=== PATIENT | female | born 1950 | race Caucasian/White ===

== ENCOUNTER → 2017-02-01 | Day surgery (SDC) | payer OTHER ==
[~2017-02-01] VITALS: Ht 172.7 cm; Wt 95.0 kg
[~2017-02-01] MED LIST: ASPI81TA28 PO; ATEN50TA8 PO; BTP80 PO; DIAZ-165 PO; HYDR-3714 PO; HYDR25TA4 PO; LEVO175T3 PO; LEVO200T6 PO; LOSA50TA6 PO; MIDAZOLAM HCL 1 MG/ML 2ML VIAL ONE; NRV5 PO; PARO1TAB29 PO; PRAV20TA PO; PROPOFOL IV EMULSION 10 MG/ML 20 ML VIAL IV ONE; TRAZ50TA35 PO; VNTHFA/IN INH; WARF5TAB7 PO
[2017-02-01 06:53] VITALS: BP 181/117; PULSE 98; TEMP 36.2; O2SAT 95; Ht 172.7 cm; Wt 95.0 kg
[2017-02-01 07:40] VITALS: BP 143/91; PULSE 88; O2SAT 98
[2017-02-01 07:43] VITALS: BP 137/72; PULSE 49; O2SAT 97
[2017-02-01 07:45] VITALS: BP 125/70; PULSE 49; O2SAT 97
[2017-02-01 07:50] VITALS: BP 126/73; PULSE 49; O2SAT 97
--- NOTE | 2017-02-01 07:51 | History and Physical ---
History & Physical Date Feb 01, 2017. Chief Complaint Atrial fib History of Present Illness The patient is a 66 year old female with complaints of atrial fib. Here for cardioversion. Past Medical/Surgical History Persistent atrial fib Treated hypothyroidism hypertension Allergies Coded Allergies: NSAIDs (Verified Allergy, Unknown, STOMACH UPSET, 01/12/17) Home Medications Scheduled Aspirin (Aspirin Ec), 81 MG PO QAM Atenolol (Tenormin), 50 MG PO QAM Hydrochlorothiazide (Hctz), 0.5 TAB PO DAILY Levothyroxine Sodium (Levothyroxine Sodium), 1 TAB PO DAILY Losartan Potassium (Cozaar), 1 TAB PO DAILY Paroxetine (Paxil), 40 MG PO QAM Pravastatin (Pravachol ), 20 MG PO HS Trazodone Hcl (Trazodone), 50 MG PO HS Warfarin Sod (Jantoven), 5 MG PO HS Scheduled PRN Hydrocodon/Acetaminophen 7.5MG/300MG (Vicodin Es (7.5MG/300MG)), 1 TAB PO Q6H PRN for Pain Physical Examination Skin: warm/dry Eyes: normal inspection ENT: normal ENT inspection Head: normocephalic Neck: supple, no adenopathy, trachea midline Respiratory/Chest: lungs clear Cardiovascular: regular rate, rhythm, no edema, no murmur Abdomen / GI: normal bowel sounds, non tender Back: normal inspection Extremities: normal inspection, normal range of motion Neurologic/Psych: no motor/sensory deficits, normal reflexes, oriented x 3 ASA Classification: ASA Class I Plan of Treatment Cardioversion
--- NOTE | 2017-02-01 07:53 | Cardioversion ---
Electricial Cardioversion Rpt Date of Service: January 31, 2017 Electrical Cardioversion Rprt Pt. received 200 joules to convert to NSR. Sedation given by anesthesia. No complications.
--- NOTE | 2017-02-01 08:35 | Anesthesiology Progress Note ---
Anesthesia Post Op Note Date & Time Feb 01, 2017 at 08:35 Vital Signs Pain Intensity: 0 Vital Signs Past 12 Hours Date Time Temp Pulse Resp B/P (MAP) Pulse Ox O2 Delivery O2 Flow Rate FiO2 02/01/17 08:30 55 19 133/59 (83) 94 Room Air 02/01/17 08:15 48 16 128/75 (92) 94 Room Air 02/01/17 08:10 50 18 128/62 (84) 95 Room Air 02/01/17 08:00 50 18 122/62 (82) 95 Room Air 02/01/17 07:50 49 18 126/73 97 Nasal Cannula 4 02/01/17 07:45 49 18 125/70 97 Nasal Cannula 4 02/01/17 07:43 49 18 137/72 97 Nasal Cannula 4 02/01/17 07:40 88 18 143/91 98 Nasal Cannula 4 02/01/17 06:53 36.2 98 16 181/117 95 Room Air Notes Mental Status: alert / awake / arousable, participated in evaluation Pt Amnestic to Procedure: Yes Nausea / Vomiting: adequately controlled Pain: adequately controlled Airway Patency, RR, SpO2: stable & adequate BP & HR: stable & adequate Hydration State: stable & adequate Anesthetic Complications: no major complications apparent
--- NOTE | 2017-02-01 09:12 | Discharge Instructions ---
Discharge Instructions Procedure Procedure Date: Feb 01, 2017. Reason for Visit: *W/Anethesia* A-Fib *Dr Dukes Doing*. Discharge Discharge Date: Feb 01, 2017. Discharge Diagnosis: Atrial fib Last Recorded Wt (Kilograms): 95 Anesthesia Post Anesthesia Instructions: If you have had General Anesthesia or IV Sedation: * Do not drive today. * Resume driving when surgeon permits. * Do not make important decisions or sign legal documents today. * Call surgeon for: 1. Temperature elevations greater than 101 degrees F. 2. Uncontrollable pain. 3. Excessive bleeding. 4. Persistent nausea and vomiting. 5. Medication intolerance (nausea, vomiting or rash). * For nausea and vomiting use only clear liquids such as: tea, soda, bouillon until nausea subsides, then gradually increase diet as tolerated. * If you have any concerns or questions, call your surgeon's office. If physician is unavailable and it is an emergency, call 911 or go to the nearest emergency room. Instructions Activity Recommendations: no limitations Recommended Home Diet: resume previous diet Allergies: Coded Allergies: NSAIDs (Verified Allergy, Unknown, STOMACH UPSET, 01/12/17) Provider Instructions ACTIVITY RECOMMENDATIONS: * May resume driving tomorrow. SPECIAL CARE: * May apply burn ointment for skin irritation. * Please contact physician for any lightheadedness, dizziness or palpitations. Follow Up Follow-up with: Follow-up with Dr. Alves as previously scheduled [facility] Recommendations: Call your doctor if: * Temperature above 101 degrees * Pain not relieved by pain medicine ordered * There is increased drainage or redness from any incision * You have any unanswered questions or concerns. Your Doctors Instructions noted above were prepared by provider Lorenzo Dukes. Patient Signature Section: Patient Instructions Signature Page Arabella Tejeda Patient (or Guardian) Signature/Date: I have read and understand the instructions given to me by my caregivers. Caregiver/RN/Doctor Signature/Date: The above-named patient and/or guardian has received patient instructions on this date. + Original Patient Signature Page (only) stays with chart. Please make copy for patient.
[2017-02-01 09:15] VITALS: BP 130/80; PULSE 55; O2SAT 95
== END | disposition home or self-care (01) ==
LOC: C.CATH 06:42
PROVIDERS: ATTEND Internal Medicine Interventional Cardiology
DX: I48.91 Unspecified atrial fibrillation (principal); E03.9 Hypothyroidism, unspecified; I10 Essential (primary) hypertension; Z79.82 Long term (current) use of aspirin; Z79.01 Long term (current) use of anticoagulants

== ENCOUNTER → 2017-02-03 | Day surgery (SDC) | payer OTHER ==
[2017-01-12 14:40] VITALS: Ht 172.7 cm; Wt 102.3 kg
[~2017-02-03] VITALS: Ht 172.7 cm; Wt 102.3 kg
[~2017-02-03] MED LIST changes: +500ML BSS 0.3ML EPI 1:1000PF IRRIG ONE; +ACETAMINOPHEN 325 MG TAB PO PRN; +AMVISC PLUS 0.8ML SYRINGE INT OCU ONE; +ATROPINE SULFATE 0.1 MG/ML 5ML SYR IV PRN; +BSS FLUSH ONE; -DIAZ-165 PO; +ENDOCOAT 0.85ML SYRINGE INT OCU ONE; +EpHEDrine SULFATE INJ 50 MG/ML AMP IV PRN; +EpINEphrine INJ 1MG/ML AMP 1 MG/ML AMP ONE; +FENTANYL CITRATE INJ 50 MCG/1 ML 2 ML VIAL ONE; +LACTATED RINGER'S 1000ML 500 ML IV SCH; -LEVO200T6 PO; +LIDOCAINE 4% OP SOLN DROP CHARGE ONE; +LIDOCAINE 4% OP SOLN DROP CHARGE OPL SCH; +LIDOCAINE HCL 1% MPF 2 ML VIAL ONE; +MIX: 4ML BSS 1ML EPI 1:1000 PF TOP ONE; +MOXIFLOXACIN OPH SOLN PER DROP CHARGE ONE; +POVIDONE-IODINE OP SOLN 30 ML BTL ONE; +PROPARACAINE 0.5% OP SOLN PER DROP CHARGE OPL SCH; -PROPOFOL IV EMULSION 10 MG/ML 20 ML VIAL IV ONE; +TOBRAMYCIN/DEXAMETHASONE OPH OINT PER APPLN CHARGE ONE; -VNTHFA/IN INH
--- NOTE | 2017-02-03 06:45 | History & Physical Bridge - [place] ---
H&P Re-Evaluation Bridge Note: I have examined the patient, reviewed the History & Physical and in the interval since the performance of the History & Physical I have noted the following changes of clinical significance: No changes noted. Left eye cataract surgery.
[2017-02-03] MEDS: PHENYLEPHRINE HCL 2.5% OP SOLN PER DROP CHARGE OPL SCH ×3 (07:26→07:35)
[2017-02-03] MEDS: TROPICAMIDE 1% OP SOLN PER DROP CHARGE OPL SCH ×3 (07:27→07:36)
[2017-02-03] MEDS: CYCLOPENTOLATE HCL 1% OP SOLN PER DROP CHARGE OPL SCH ×3 (07:28→07:37)
[2017-02-03] MEDS: MOXIFLOXACIN OPH SOLN PER DROP CHARGE OPL SCH ×3 (07:29→07:38)
--- NOTE | 2017-02-03 08:45 | [facility] Post Operative Brief Note ---
Immediate Operative Summary Operative Date Feb 03, 2017. Pre-Operative Diagnosis Left Eye Cartaract Post-Operative Diagnosis same Procedure(s) Performed Left Cataract Phacoemulsification With Intraocular Lens Implant Surgeon Dr. Stephanie Woods Crew Attendant Surgeon(s) 0 Estimated Blood Loss 0 Findings left cataract Specimens none Complication(s) None Disposition
--- NOTE | 2017-02-03 08:46 | [facility] Operative Report ---
Operative Report Date of Service Feb 03, 2017. Operative Report DATE OF OPERATION: 02/03/17 PREOPERATIVE DIAGNOSIS: Senile nuclear cataract, left eye POSTOPERATIVE DIAGNOSIS: Senile nuclear cataract, left eye PROCEDURE PERFORMED: Phacoemulsification with intraocular lens implantation, left eye SURGEON: Dr. Leland Woods ANESTHESIA: Topical with 1% intracameral lidocaine and monitored anesthesia care COMPLICATIONS: None DESCRIPTION OF PROCEDURE: After positively identifying the patient both verbally and by wristband in the preoperative area, the left eye was marked as the operative eye. The patient was then brought back to the operating room by the anesthesia and nursing staff where they were given a drop of Lidocaine and betadine into the operative eye. They were then sterilely prepped and draped in the standard fashion typical for ophthalmic surgery. Steri-strips were placed along the upper eyelids to keep the lashes back, and a lid speculum was placed into the operative eye. At this point, a documented time out was performed with members of the ophthalmology, nursing, and anesthesia staffs all agreeing upon the correct patient, correct location for surgery, correct procedure, and correct type and power of intraocular lens to be implanted. The microscope was then swung into position. First, a paracentesis wound was made using a sideport blade. Then, in sequence, 1% preservative-free lidocaine followed by Endocoat viscoelastic was injected into the anterior chamber. Next , the main incision was made with a keratome blade in triplanar fashion. A sharp cystotome was introduced into the eye and used to create a tear in the anterior capsule, which was directed into a continuous curvilinear capsulorrhexis using Utrata forceps. Hydrodissection was then performed with BSS on a flat-tip cannula. Next, the phacoemulsification handpiece was introduced into the eye and used to remove the nucleus in a [id number] fashion. This was done without complication and then the irrigation-aspiration handpiece was introduced into the eye and used to remove all remaining cortical and epinuclear material. Amvisc was then injected into the anterior chamber as well as into the capsular bag and using the lens injector system, an MX60 19.5 D lens, serial number [id number], and expiration date 07/2019 was injected into the capsular bag and rotated into the correct position. Next, the irrigation- aspiration handpiece was used to remove all remaining Amvisc. BSS was used to hydrate the main wound, and then BSS was injected into the paracentesis site to reach physiologic pressure and then the main wound was checked and found to be watertight. The patient was given drops of Vigamox and Tobradex ointment into the operative eye, and then the surrounding area was cleaned and dried. A clear plastic shield was placed over the eye and the patient was then sat up and taken from the operating room by the anesthesia staff having tolerated the procedure well and suffering no complications. DISPOSITION: The patient was returned to the recovery room in stable condition. I attest to the content of the Intraoperative Record and any orders documented therein. Any exceptions are noted below.
--- NOTE | 2017-02-03 08:47 | Discharge Instructions-SurgCtr ---
Discharge Instructions Date of Service Feb 03, 2017. Visit Reason for Visit: Cataract Left Eye Discharge Discharge Diagnosis / Problem: left cataract Discharge Goals Goal(s): Decrease discomfort, Improve function Activity Recommendations Activity Limitations: as noted below Anesthesia . Post Anesthesia Instructions: If you have had General Anesthesia or IV Sedation: * Do not drive today. * Resume driving when surgeon permits. * Do not make important decisions or sign legal documents today. * Call surgeon for: 1. Temperature elevations greater than 101 degrees F. 2. Uncontrollable pain. 3. Excessive bleeding. 4. Persistent nausea and vomiting. 5. Medication intolerance (nausea, vomiting or rash). * For nausea and vomiting use only clear liquids such as: tea, soda, bouillon until nausea subsides, then gradually increase diet as tolerated. * If you have any concerns or questions, call your surgeon's office. If physician is unavailable and it is an emergency, call 911 or go to the nearest emergency room. . Instructions / Follow-Up Instructions / Follow-Up ACTIVITY RECOMMENDATIONS: * Light activities. * You may walk outside, read, watch television. * You may notice redness on the white part of the eye and some blurry vision - this is normal. MEDICATIONS: Resume previous medications unless instructed otherwise by your surgeon. Start all eye drops at 11 am today: * Eye drops (today): Prednisone - one drop in operative eye every 2 hours while awake Ofloxacin - one drop in operative eye every 2 hours while awake Bromfenac - one drop in operative eye daily SPECIAL CARE INSTRUCTIONS: * Tape plastic shield over eye to sleep at night. Call your doctor at with any concerns or problems. FOLLOW UP VISIT: Follow-up with Dr Woods at [place] office as scheduled. Diet Recommendations Home Diet: no limitations Procedures Procedures Performed: Left Cataract Phacoemulsification With Intraocular Lens Implant Pending Studies Studies pending at discharge: no Medical Emergencies . Who to Call and When: Medical Emergencies: If at any time you feel your situation is an emergency, please call 911 immediately. . Non-Emergent Contact Non-Emergency issues call your: Surgeon . . "Provider Documentation" section prepared by Leland Woods. .
[2017-02-03 08:49] VITALS: TEMP 36.5
--- NOTE | 2017-02-03 09:09 | Anesthesia Progress Nt - [facility] ---
Anesthesia Post Op Note Date & Time Feb 03, 2017 at 09:09 Vital Signs Pain Intensity: 0 Vital Signs Past 12 Hours Date Time Temp Pulse Resp B/P (MAP) Pulse Ox O2 Delivery O2 Flow Rate FiO2 02/03/17 08:49 36.5 47 16 167/49 (88) 93 Room Air 02/03/17 07:07 36.6 45 20 162/101 (121) 93 Room Air Notes Mental Status: alert / awake / arousable, participated in evaluation Pt Amnestic to Procedure: Yes Nausea / Vomiting: adequately controlled Pain: adequately controlled Airway Patency, RR, SpO2: stable & adequate BP & HR: stable & adequate Hydration State: stable & adequate Anesthetic Complications: no major complications apparent
[2017-02-03 09:23] VITALS: BP 150/79; PULSE 47; O2SAT 93
== END | disposition home or self-care (01) ==
LOC: X.SURG 06:42
PROVIDERS: ATTEND Ophthalmology
DX: H25.12 Age-related nuclear cataract, left eye (principal); I10 Essential (primary) hypertension; Z68.34 Body mass index [BMI] 34.0-34.9, adult; Z98.41 Cataract extraction status, right eye; F17.200 Nicotine dependence, unspecified, uncomplicated; M19.90 Unspecified osteoarthritis, unspecified site; Z85.828 Personal history of other malignant neoplasm of skin; I48.91 Unspecified atrial fibrillation; Z79.01 Long term (current) use of anticoagulants

== ENCOUNTER 2017-03-15 08:55 | Inpatient (IN) | payer OTHER ==
[~2017-03-15] VITALS: Ht 172.7 cm; Wt 98.6 kg
[2017-03-15] VITALS (8 sets, daily range): BP systolic 126–182; BP diastolic 86–119; PULSE 61–105; TEMP 36.6–36.9; O2SAT 93–95; Ht 172.7 cm; Wt 98.6 kg
[~2017-03-15 08:55] MED LIST changes: -500ML BSS 0.3ML EPI 1:1000PF IRRIG ONE; -ACETAMINOPHEN 325 MG TAB PO PRN; -AMVISC PLUS 0.8ML SYRINGE INT OCU ONE; -ATROPINE SULFATE 0.1 MG/ML 5ML SYR IV PRN; -BSS FLUSH ONE; -BTP80 PO; -ENDOCOAT 0.85ML SYRINGE INT OCU ONE; -EpHEDrine SULFATE INJ 50 MG/ML AMP IV PRN; -EpINEphrine INJ 1MG/ML AMP 1 MG/ML AMP ONE; -FENTANYL CITRATE INJ 50 MCG/1 ML 2 ML VIAL ONE; -LACTATED RINGER'S 1000ML 500 ML IV SCH; -LIDOCAINE 4% OP SOLN DROP CHARGE ONE; -LIDOCAINE 4% OP SOLN DROP CHARGE OPL SCH; -LIDOCAINE HCL 1% MPF 2 ML VIAL ONE; -MIDAZOLAM HCL 1 MG/ML 2ML VIAL ONE; -MIX: 4ML BSS 1ML EPI 1:1000 PF TOP ONE; -MOXIFLOXACIN OPH SOLN PER DROP CHARGE ONE; -NRV5 PO; -POVIDONE-IODINE OP SOLN 30 ML BTL ONE; -PROPARACAINE 0.5% OP SOLN PER DROP CHARGE OPL SCH; -TOBRAMYCIN/DEXAMETHASONE OPH OINT PER APPLN CHARGE ONE
--- NOTE | 2017-03-15 10:11 | History and Physical ---
History & Physical Date & Time of Service: Mar 15, 2017 at 10:04 Chief Complaint: A-FIB Primary Care Physician: Matthew Barahona D.O. History of Present Illness Source: patient, clinic records, hospital records Patient presents for inpatient sotalol loading. Vaguely aware of her heart rate. Denies chest pain or shortness of breath. No lightheadedness, dizziness , syncope or near-syncope. Social History Smoking Status: Current Every Day Smoker Drug Use: none Marital Status: Housing status: lives with family Occupational Status: employed Immunizations History of Influenza Vaccine: Yes Influenza Vaccine Date: Jul 22, 2005 History of Tetanus Vaccine?: Yes Tetanus Immunization Date: Jul 22, 2004 History of Pneumococcal: Yes Pneumococcal Date: Jul 22, 2004 History of Hepatitis B Vaccine: No Multi-Drug Resistant Organisms History of MDRO: No Allergies Coded Allergies: NSAIDs (Verified Allergy, Unknown, STOMACH UPSET, 01/12/17) Home Medications Scheduled Aspirin (Aspirin Ec), 81 MG PO QAM Atenolol (Tenormin), 50 MG PO QAM Hydrochlorothiazide (Hctz), 0.5 TAB PO DAILY Levothyroxine Sodium (Levothyroxine Sodium), 1 TAB PO DAILY Losartan Potassium (Cozaar), 1 TAB PO DAILY Paroxetine (Paxil), 40 MG PO QAM Pravastatin (Pravachol ), 20 MG PO HS Trazodone Hcl (Trazodone), 50 MG PO HS Warfarin Sod (Jantoven), 5 MG PO HS Scheduled PRN Hydrocodon/Acetaminophen 7.5MG/300MG (Vicodin Es (7.5MG/300MG)), 1 TAB PO Q6H PRN for Pain Diagnostics Laboratory Results Results Past 24 Hours Test 03/15/17 10:01 Range/Units Impression Assessment and Plan ASSESSMENT: 1. Paroxysmal atrial fibrillation with RVR s/p DCCV 01/29/2016, 05/2016, and most recently 02/01/17. -CHADS2 VASc score = 2. -currently AF with borderline rate control 2. Hypertension controlled 3. Hypertriglyceridemia currently tolerating pravastatin; fenofibrate on hold 4. Former tobacco abuse. 5. Generalized anxiety disorder. 6. Hypothyroidism Plan/recommendations: Patient will be admitted to telemetry floor for sotalol loading. Baseline ECG ordered. She will receive 80 mg 1 now. Then 80 mg twice daily. ECG will be performed in the a.m. to assess QT interval. She'll remain on continuous telemetry monitoring during hospitalization. Atenolol will be placed on hold. Repeat PT/INR and basic metabolic panel pending. Consider repeat external direct-current cardioversion during hospitalization. Level of Care Telemetry Advanced Directives Existing Advance Directive: No Existing Living Will: No Existing Power of Building Contractor: No Existing Health Care Proxy: No Resuscitation Status FULL RESUSCITATION VTE Prophylaxis VTE Risk Assessment Done? Y/N: Yes Risk Level: Low Given or contraindicated: Warfarin (Coumadin) Social Service Consult None Apply
[2017-03-15] MEDS ORDERED: SOTALOL HCL 80 MG TAB PO ONE ×2 (13:00→14:45)
[2017-03-15 13:38] LABS: BUN/CREATININE RATIO 16.2 (10-20); CALCIUM 9.4 mg/dl (8.5-10.1); CREATININE 0.86 mg/dl (0.60-1.20); POTASSIUM 4.1 mmol/L (3.5-5.1)
[2017-03-15 13:48] LABS: INR 1.8 (0.9-1.1); PROTHROMBIN TIME (PATIENT) 19.8 SECONDS (9.0-12.0)
[2017-03-15] MEDS ORDERED: ASPIRIN 81 MG ECTAB PO ONE (14:45)
[2017-03-15] MEDS ORDERED: HYDROCHLOROTHIAZIDE 25 MG TAB PO ONE (14:45)
[2017-03-15] MEDS ORDERED: LOSARTAN POTASSIUM 50 MG TAB PO ONE (14:45)
[2017-03-15] MEDS ORDERED: LEVOTHYROXINE 175 MCG TAB PO ONE (14:45)
[2017-03-15] MEDS ORDERED: METOPROLOL TARTRATE 1 MG/ML VIAL IV ONE (14:45)
[2017-03-15] MEDS ORDERED: PAROXETINE 20 MG TAB PO ONE (14:45)
--- NOTE | 2017-03-15 14:59 | History & Physical Bridge Note ---
H&P Re-Evaluation Bridge Note: I have examined the patient, reviewed the History & Physical and in the interval since the performance of the History & Physical I have noted the following changes of clinical significance: AF, RVR noted on telemetry, V rate 129 bpm. BP elevated. Examination: Last Vital Signs Documentation Date Time Temp Pulse Resp B/P (MAP) Pulse Ox O2 Delivery O2 Flow Rate FiO2 03/15/17 13:15 36.6 105 18 173/119 94 Room Air Gen AAO x 2 Pulm CTAB Abd Soft , non tender Ext no edema Neuro no focal deficits CV: irregular rhythm, tachycardic, no murmur Last Resulted 03/15/17 12:59 Past 24 Hours Test 03/15/17 12:59 Range/Units Prothromb Time International Ratio 1.8 H 0.9-1.1 Prothrombin Time 19.8 H 9.0-12.0 SECONDS EKG with RVR at 125 bpm, QTc 487 ms Impression: AF, RVR HTN Plan: Patient held her home BP meds so far today, so that likely explain her elevated BP. Plan to is proceed with sotalol initiation. DC home atenolol, start sotalol, 80 mg now, with dose 2 in am. Will administer home dose of losartan and HCTZ and IV metoprolol 5 mg IV x 1. Bernie An DO
[2017-03-15] MEDS ORDERED: WARFARIN SOD 7.5 MG TAB PO SCH (16:00)
[2017-03-15] MEDS ORDERED: WARFARIN SOD 5 MG TAB PO SCH (16:00)
[2017-03-15] MEDS: PRAVASTATIN SOD 20 MG TAB PO SCH (17:07)
[2017-03-15] MEDS ORDERED: HEPARIN 25,000 UNIT/500ML D5W 500 ML IV PRN (17:45)
--- NOTE | 2017-03-15 17:48 | Cardiology Progress Note ---
Cardiology Progress Note Date of Service Mar 15, 2017. Cardiology Progress Note Nicotine patch requested by patient as she is a smoker with cravings while hospitalized for atrial fibrillation with RVR. Moderate dose nicotine patch ordered. Bernie An DO
[2017-03-15 18:00] LABS: BASO % 0.5 %; BASO ABS # 0.05 K/uL (0-0.2); EOS % 3.4 %; HEMATOCRIT 45.6 % (37-47); IG% 0.2 %; LYMPH % 36.2 %; LYMPH ABS # 3.35 K/uL (1.2-3.4); MEAN CELL VOLUME 87.9 fL (80-100); MEAN PLATELET VOLUME 9.6 fL (7.4-10.4); MONO % 5.2 %; NEUT % 54.5 %; PLATELET COUNT 176 K/uL (130-400); RED BLOOD COUNT 5.19 M/uL (4.2-5.4); WHITE BLOOD COUNT 9.25 K/uL (4.8-10.8)
[2017-03-15] MEDS ORDERED: NICOTINE 14 MG/24 HR TDSY TD ONE (18:00)
[2017-03-15 18:02] LABS: COMPLETE YES; MEAN CORPUSCULAR HGB CONC 35.3 g/dl (32-36)
[2017-03-15 18:10] LABS: PARTIAL THROMBOPLASTIN RATIO 1.2
[2017-03-15] MEDS ORDERED: SOTALOL HCL 80 MG TAB PO SCH (21:00)
[2017-03-15] MEDS ORDERED: TRAZODONE HCL 50 MG TAB PO SCH (21:00)
[2017-03-15] MEDS ORDERED: PRAVASTATIN SOD 20 MG TAB PO SCH (21:00)
[2017-03-15] MEDS: SOTALOL HCL 80 MG TAB PO SCH (21:01)
[2017-03-15] MEDS: HYDROCODONE/ACETAMINOPHEN 7.5/325MG TAB PO PRN (23:41)
[2017-03-16] VITALS (7 sets, daily range): BP systolic 148–183; BP diastolic 89–130; PULSE 75–100; TEMP 36.5–36.9; O2SAT 91–99
[2017-03-16] MEDS ORDERED: ALUMINUM/MAGNESIUM SUSP 30 ML UDC PO ONE (03:00)
[2017-03-16] MEDS ORDERED: NURSING VERBAL MED ORDER ONE (03:00)
[2017-03-16] MEDS ORDERED: DIAZEPAM 2MG TAB PO ONE (03:15)
[2017-03-16] MEDS ORDERED: TRAZODONE HCL 50 MG TAB PO ONE (03:15)
[2017-03-16] MEDS ORDERED: AMLODIPINE BESYLATE 5 MG TAB PO ONE (03:15)
[2017-03-16 05:18] LABS: PARTIAL THROMBOPLASTIN RATIO 2.4; PROTHROMBIN TIME (PATIENT) 21.9 SECONDS (9.0-12.0)
[2017-03-16] MEDS: LEVOTHYROXINE 175 MCG TAB PO SCH (05:58)
[2017-03-16] MEDS ORDERED: LEVOTHYROXINE 125 MCG TAB PO SCH (06:00)
[2017-03-16] MEDS: LOSARTAN POTASSIUM 50 MG TAB PO SCH (07:50)
[2017-03-16] MEDS: PAROXETINE 20 MG TAB PO SCH (07:50)
[2017-03-16] MEDS: HYDROCHLOROTHIAZIDE 25 MG TAB PO SCH (07:51)
[2017-03-16] MEDS: SOTALOL HCL 80 MG TAB PO SCH ×2 (07:52→20:09)
[2017-03-16] MEDS: ASPIRIN 81 MG ECTAB PO SCH (07:52)
[2017-03-16] MEDS: NICOTINE 14 MG/24 HR TDSY TD SCH (07:53)
[2017-03-16] MEDS: HYDROCODONE/ACETAMINOPHEN 7.5/325MG TAB PO PRN ×3 (07:54→20:10)
[2017-03-16] MEDS ORDERED: PAROXETINE 20 MG TAB PO SCH (09:00)
[2017-03-16] MEDS ORDERED: ASPIRIN 81 MG CHEW PO SCH (09:00)
[2017-03-16] MEDS ORDERED: HYDROCHLOROTHIAZIDE 25 MG TAB PO SCH (09:00)
[2017-03-16] MEDS ORDERED: LOSARTAN POTASSIUM 50 MG TAB PO SCH (09:00)
[2017-03-16] MEDS ORDERED: ALUMINUM/MAGNESIUM SUSP 30 ML UDC PO PRN (09:45)
--- NOTE | 2017-03-16 10:08 | Cardiology Follow-Up ---
Subjective General Date of Service: Mar 16, 2017. Pt evaluation today including: conversation w/ patient, physical exam, chart review, lab review, review of studies, review of inpatient medication list History of Present Illness The patient is a 66 year old female seen in follow-up. Complained of dyspepsia and epigastric discomfort last night relieved with Maalox. Blood pressure also elevated. Low-dose amlodipine added. Reports feeling anxious. Feeling somewhat sleepy this morning after dose of Valium at 4 AM. Remains in atrial fibrillation with improved rate control on sotalol. QTC mildly elevated per review of repeat ECG this a.m. Trazodone placed on hold due to potential for QT prolongation. Allergies Coded Allergies: NSAIDs (Verified Allergy, Unknown, STOMACH UPSET, 01/12/17) Social History Smoking Status: Current Every Day Smoker Hx Tobacco Use In Past Year?: Yes Hx Alcohol Use - Type And Amou: No Hx Substance Use - Type And Am: No Review of Systems Respiratory: No cough, No sputum, No wheezing, No shortness of breath, No dyspnea on exertion, No dyspnea at rest, No hemoptysis Cardiac: No chest pain, No orthopnea, No PND, No edema, No palpitations Physical Exam Vital Signs Last Vital Signs Documentation Date Time Temp Pulse Resp B/P (MAP) Pulse Ox O2 Delivery O2 Flow Rate FiO2 03/16/17 08:04 36.8 86 18 183/130 (147) 95 03/16/17 03:00 Room Air Physical Exam Constitutional: General Apperance: well-nourished Level of Distress: NAD Head: normocephalic, atraumatic ENMT: normal ENT inspection Neck: supple, trachea midline Lungs: Auscultation: breath sounds normal, no wheezing, no rales/crackles, no rhonchi Cardiovascular: Heart Auscultation: normal S1, normal S2, no murmurs, irregular rate rhythm Peripheral Pulses: Radial Pulse: normal on the right Abdomen: Bowel Sounds: normal Inspection & Palpation: soft, non-distended, no tenderness, guarding & rebound Extremities: no cyanosis, no edema, no clubbing, no ulcers Neurologic: Gait & Station: pertinent finding (No focal deficit) Cranial Nerves: grossly intact Assessment and Plan Assessment and Plan 1. Paroxysmal atrial fibrillation with RVR s/p DCCV 01/29/2016, 05/2016, and most recently 02/01/17. -CHADS2 VASc score = 2. -rate controlled improved with sotalol -Mild Qt prolongation on ECG this AM 2. Hypertension uncontrolled 3. Hypertriglyceridemia currently tolerating pravastatin; fenofibrate on hold 4. Former tobacco abuse. 5. Generalized anxiety disorder. 6. Hypothyroidism Plan/recommendations: Repeat ECG. if QTc > 500ms will reduce dose of sotalol with repeat ECG. Plan SUZETTE guided DCCV in AM. Heparin discontinued. Add amlodipine 5mg daily. Will give an additional 2.5mg today. Laboratory Results Last 24 Hours Test 03/15/17 12:59 03/15/17 17:47 03/16/17 00:59 03/16/17 04:42 Prothrombin Time 19.8 SECONDS 21.9 SECONDS Prothromb Time International Ratio 1.8 2.0 Sodium Level 139 mmol/L Potassium Level 4.1 mmol/L Chloride Level 104 mmol/L Carbon Dioxide Level 33 mmol/L Anion Gap 2.0 mmol/L Blood Urea Nitrogen 14 mg/dl Creatinine 0.86 mg/dl Est Creatinine Clear Calc Drug Dose 78.7 ml/min Estimated GFR () 81.6 Estimated GFR (Non- 70.4 BUN/Creatinine Ratio 16.2 Random Glucose 111 mg/dl Calcium Level 9.4 mg/dl White Blood Count 9.25 K/uL Red Blood Count 5.19 M/uL Hemoglobin 16.1 g/dL Hematocrit 45.6 % Mean Corpuscular Volume 87.9 fL Mean Corpuscular Hemoglobin 31.0 pg Mean Corpuscular Hemoglobin Concent 35.3 g/dl Platelet Count 176 K/uL Mean Platelet Volume 9.6 fL Neutrophils (%) (Auto) 54.5 % Lymphocytes (%) (Auto) 36.2 % Monocytes (%) (Auto) 5.2 % Eosinophils (%) (Auto) 3.4 % Basophils (%) (Auto) 0.5 % Neutrophils # (Auto) 5.04 K/uL Lymphocytes # (Auto) 3.35 K/uL Monocytes # (Auto) 0.48 K/uL Eosinophils # (Auto) 0.31 K/uL Basophils # (Auto) 0.05 K/uL RDW Standard Deviation 43.0 fL RDW Coefficient of Variation 13.4 % Immature Granulocyte % (Auto) 0.2 % Immature Granulocyte # (Auto) 0.02 K/uL Activated Partial Thromboplast Time 32.2 SECONDS 51.9 SECONDS 61.3 SECONDS Partial Thromboplastin Ratio 1.2 2.0 2.4
[2017-03-16] MEDS ORDERED: AMLODIPINE BESYLATE 5 MG TAB PO STA (10:12)
[2017-03-16] MEDS ORDERED: DIAZEPAM 2MG TAB PO PRN (10:15)
[2017-03-16] MEDS: PRAVASTATIN SOD 20 MG TAB PO SCH (16:52)
[2017-03-16] MEDS: WARFARIN SOD 5 MG TAB PO SCH (16:53)
--- NOTE | 2017-03-16 19:03 | Progress Note ---
Progress Note Date of Service Mar 16, 2017. Progress Note Pt is a 66 yo female who is scheduled for a cardioversion tomorrow. Pt with chronic Afib with previous history of cardioversion x 3. Anesthesia plan was discussed with patient and consent was obtained.
[2017-03-17] VITALS (18 sets, daily range): BP systolic 124–171; BP diastolic 70–127; PULSE 51–99; TEMP 36.5–36.7; O2SAT 91–99
[2017-03-17] MEDS: HYDROCODONE/ACETAMINOPHEN 7.5/325MG TAB PO PRN ×3 (03:45→15:41)
[2017-03-17 04:48] LABS: HEMATOCRIT 46.7 % (37-47); MEAN CELL VOLUME 88.8 fL (80-100); MEAN CORPUSCULAR HEMOGLOBIN 31.4 pg (25-34); MEAN PLATELET VOLUME 9.5 fL (7.4-10.4); PLATELET COUNT 173 K/uL (130-400); RED BLOOD COUNT 5.26 M/uL (4.2-5.4)
[2017-03-17 04:59] LABS: MEAN CORPUSCULAR HGB CONC 35.3 g/dl (32-36)
[2017-03-17 05:00] LABS: INR 2.2 (0.9-1.1); PROTHROMBIN TIME (PATIENT) 23.8 SECONDS (9.0-12.0)
[2017-03-17 05:08] LABS: BUN/CREATININE RATIO 19.5 (10-20); CALCIUM 8.6 mg/dl (8.5-10.1); CREATININE 0.89 mg/dl (0.60-1.20); MAGNESIUM 2.1 mg/dl (1.8-2.4); POTASSIUM 4.1 mmol/L (3.5-5.1)
[2017-03-17] MEDS: LEVOTHYROXINE 175 MCG TAB PO SCH (06:01)
[2017-03-17] MEDS ORDERED: BENZOCAIN/TETRACA/BUTAM SPRAY 200 APPLN/20 GM SPRY ONE (07:19)
[2017-03-17] MEDS ORDERED: PROPOFOL IV EMULSION 10 MG/ML 20 ML VIAL IV ONE (07:19)
[2017-03-17] MEDS ORDERED: LIDOCAINE HCL 2% 2 ML VIAL (20MG/ML) ONE (07:20)
[2017-03-17] MEDS ORDERED: LABETALOL HCL IV 5 MG/ML 20ML IV ONE (07:40)
[2017-03-17] MEDS ORDERED: NURSING VERBAL MED ORDER ONE (08:00)
--- NOTE | 2017-03-17 08:41 | Cardiology Procedure Brief Nt ---
Preliminary Cardiology Note Procedure Date Mar 17, 2017. Pre-Procedure Diagnosis Atrial fibrillation with rapid ventricular response Post-Procedure Diagnosis successful SUZETTE guided DCCV Procedure(s) Performed SUZETTE DCCV System Analyst Dr. Alves [employer] Underwriter(s) none Estimated Blood Loss none Preliminary Findings Reduced LV systolic function AF with RVR Recommendations Continue sotalol and coumadin Specimens none Anesthesia sedation per anesthesia service Complication(s) None Disposition PCU
[2017-03-17] MEDS: ASPIRIN 81 MG ECTAB PO SCH (08:44)
[2017-03-17] MEDS: LOSARTAN POTASSIUM 50 MG TAB PO SCH (08:44)
[2017-03-17] MEDS: HYDROCHLOROTHIAZIDE 25 MG TAB PO SCH (08:44)
[2017-03-17] MEDS: PAROXETINE 20 MG TAB PO SCH (08:45)
[2017-03-17] MEDS: NICOTINE 14 MG/24 HR TDSY TD SCH (08:45)
[2017-03-17] MEDS: SOTALOL HCL 80 MG TAB PO SCH (08:47)
--- NOTE | 2017-03-17 08:49 | CARDIOVERSION ---
DATE OF OPERATION: 03/17/2017 DATE OF PROCEDURE: 03/17/2017 PROCEDURE: Transesophageal echo guided direct current cardioversion. COMPLICATIONS: None. ANESTHESIA: Conscious sedation provided by anesthesia service. PROCEDURAL SUMMARY: The patient was brought to the cardiac catheterization lab in the usual fasting state. Due to subtherapeutic INR noted on admission transesophageal echo was performed prior to cardioversion. Transesophageal echo demonstrated reduced systolic function without evidence of left atrial thrombus. Please see separate report for details. Defibrillator pads were placed in an anterior posterior position prior to procedure. After the transesophageal echo probe was removed, the defibrillator was synched to the QRS complex. Defibrillator was then charged to 200 joules. A single 200 joule synchronized shock was delivered. The patient was successfully converted from atrial fibrillation to sinus bradycardia. No complications. CONCLUSIONS: Successful transesophageal echo guided direct current cardioversion from atrial fibrillation to sinus bradycardia. I attest to the content of the Intraoperative Record and any orders documented therein. Any exceptions are noted below. ONUR
[2017-03-17] MEDS ORDERED: AMLODIPINE BESYLATE 5 MG TAB PO SCH (09:00)
--- NOTE | 2017-03-17 09:13 | Anesthesiology Progress Note ---
Anesthesia Post Op Note Date & Time Mar 17, 2017 at 09:13 Vital Signs Pain Intensity: 0 Vital Signs Past 12 Hours Date Time Temp Pulse Resp B/P (MAP) Pulse Ox O2 Delivery O2 Flow Rate FiO2 03/17/17 08:48 52 20 146/89 (108) 94 Nasal Cannula 2.0 03/17/17 08:37 51 137/86 (103) 03/17/17 08:35 54 16 125/72 (89) 96 Room Air 03/17/17 08:25 54 16 127/75 (92) 96 Room Air 03/17/17 08:15 53 16 131/70 99 Nasal Cannula 4 03/17/17 08:15 53 16 125/79 (94) 96 Room Air 03/17/17 08:10 53 16 151/80 99 Nasal Cannula 4 03/17/17 08:07 53 16 151/101 99 Nasal Cannula 4 03/17/17 08:06 96 16 151/101 99 Nasal Cannula 4 03/17/17 08:05 96 16 156/115 99 Nasal Cannula 4 03/17/17 08:00 94 16 145/105 99 Nasal Cannula 4 03/17/17 07:55 98 16 154/127 99 Nasal Cannula 4 03/17/17 07:54 98 16 161/111 98 Nasal Cannula 4 03/17/17 07:50 96 16 161/111 98 Nasal Cannula 4 03/17/17 07:43 88 16 157/115 98 Nasal Cannula 4 03/17/17 07:06 36.7 77 16 171/105 (127) 93 Room Air 03/17/17 04:00 Room Air 03/17/17 03:42 36.5 99 20 169/101 (123) 92 Room Air 03/17/17 00:00 Room Air 03/16/17 22:55 36.9 75 16 148/91 (110) 91 Room Air 03/16/17 21:42 Room Air Notes Mental Status: alert / awake / arousable, participated in evaluation Pt Amnestic to Procedure: Yes Nausea / Vomiting: adequately controlled Pain: adequately controlled Airway Patency, RR, SpO2: stable & adequate BP & HR: stable & adequate Hydration State: stable & adequate Anesthetic Complications: no major complications apparent
--- NOTE | 2017-03-17 11:03 | Cardiology Follow-Up ---
Subjective General Date of Service: Mar 17, 2017. Pt evaluation today including: conversation w/ patient, physical exam, chart review, lab review, review of studies, review of inpatient medication list History of Present Illness The patient is a 66 year old female seen in follow up. Patient resting comfortably after SUZETTE / cardioversion. Denies chest pain or shortness of breath. Remains in sinus rhythm on telemetry. Mildly elevated QT interval on repeat ECG. Allergies Coded Allergies: NSAIDs (Verified Allergy, Unknown, STOMACH UPSET, 01/12/17) Social History Smoking Status: Current Every Day Smoker Hx Tobacco Use In Past Year?: Yes Hx Alcohol Use - Type And Amou: No Hx Substance Use - Type And Am: No Review of Systems Respiratory: No cough, No sputum, No wheezing, No shortness of breath, No dyspnea at rest, No hemoptysis Cardiac: No chest pain, No orthopnea, No PND, No edema, No palpitations Physical Exam Vital Signs Last Vital Signs Documentation Date Time Temp Pulse Resp B/P (MAP) Pulse Ox O2 Delivery O2 Flow Rate FiO2 03/17/17 08:48 52 20 146/89 (108) 94 Nasal Cannula 2.0 03/17/17 07:06 36.7 Physical Exam Constitutional: General Apperance: well-nourished Level of Distress: NAD Head: normocephalic, atraumatic ENMT: normal ENT inspection Neck: supple, trachea midline Lungs: Auscultation: breath sounds normal, no wheezing, no rales/crackles, no rhonchi Cardiovascular: Heart Auscultation: RRR, normal S1, normal S2, no murmurs, bradycardia Peripheral Pulses: Radial Pulse: normal on the right Abdomen: Bowel Sounds: normal Inspection & Palpation: soft, non-distended, no tenderness, guarding & rebound Extremities: no cyanosis, no edema, no clubbing, no ulcers Neurologic: Gait & Station: pertinent finding (No focal deficit) Cranial Nerves: grossly intact Assessment and Plan Assessment and Plan 1. Paroxysmal atrial fibrillation with RVR s/p successful SUZETTE guided DCCV today. -Mild QTc prolongation -INR therapeutic 2. Hypertension uncontrolled, however, improved with addition of amlodipine. 3. Former tobacco abuse. 4. Generalized anxiety disorder. Plan/recommendations: Reduce sotalol to 80 mg in the morning, 40 mg in the evening. Repeat ECG this afternoon. Continue coumadin for goal INR of 2.0 - 3.0. Possible discharge this afternoon if QT improved. Laboratory Results Last 24 Hours Test 03/17/17 04:36 White Blood Count 8.10 K/uL Red Blood Count 5.26 M/uL Hemoglobin 16.5 g/dL Hematocrit 46.7 % Mean Corpuscular Volume 88.8 fL Mean Corpuscular Hemoglobin 31.4 pg Mean Corpuscular Hemoglobin Concent 35.3 g/dl RDW Standard Deviation 43.4 fL RDW Coefficient of Variation 13.3 % Platelet Count 173 K/uL Mean Platelet Volume 9.5 fL Prothrombin Time 23.8 SECONDS Prothromb Time International Ratio 2.2 Sodium Level 142 mmol/L Potassium Level 4.1 mmol/L Chloride Level 105 mmol/L Carbon Dioxide Level 32 mmol/L Anion Gap 5.0 mmol/L Blood Urea Nitrogen 17 mg/dl Creatinine 0.89 mg/dl Est Creatinine Clear Calc Drug Dose 76.0 ml/min Estimated GFR () 78.3 Estimated GFR (Non- 67.5 BUN/Creatinine Ratio 19.5 Random Glucose 101 mg/dl Calcium Level 8.6 mg/dl Magnesium Level 2.1 mg/dl
--- NOTE | 2017-03-17 12:04 | DISCHARGE SUMMARY ---
ADMISSION DIAGNOSIS: Persistent atrial fibrillation with rapid ventricular response. DISCHARGE DIAGNOSIS: Persistent atrial fibrillation with rapid ventricular response, status post elective external direct current cardioversion. CONSULTS DURING ADMISSION: None. ADMISSION MEDICATIONS: 1. Aspirin 81 mg daily. 2. Atenolol 50 mg daily. 3. HCTZ 12.5 mg daily. 4. Synthroid daily. 5. Losartan 1 tab daily. 6. Paxil 40 mg daily. 7. Pravastatin 20 mg daily. 8. Trazodone 50 mg daily. 9. Coumadin 5 mg daily. DISCHARGE MEDICATIONS: 1. Sotalol 80 mg in the morning, 40 mg in the evening. 2. Amlodipine 5 mg daily. 3. Coumadin 5 mg daily. 4. Aspirin 81 mg daily. 5. Hydrochlorothiazide 12.5 mg daily. 6. Losartan 50 mg daily. 7. Paroxetine 40 mg daily. 8. Pravastatin 20 mg daily. 9. Levothyroxine 175 mcg daily. HOSPITAL COURSE: The patient was admitted 03/15/2017 for sotalol loading. She tolerated medication. On 03/17/2017, she underwent transesophageal guided external cardioversion. Procedure was successful, sinus rhythm was restored. Mildly elevated QTc noted on repeat ECG after cardioversion. Sotalol dose subsequently reduced to 80 mg in the morning and 40 mg in the evening. PLAN: Outpatient followup, repeat ECG in 5-7 days. She will continue Coumadin as previously ordered. Please note, this discharge summary may contain errors and omission. Please see the medical record for full details. 35 minutes spent preparing discharge. ONUR
[2017-03-17] MEDS ORDERED: PERFLUTREN LIPID MICROSPHERE (DEFINITY) IV ONE (14:42)
[2017-03-17] MEDS: WARFARIN SOD 5 MG TAB PO SCH (15:41)
--- NOTE | 2017-03-17 16:10 | ECHOCARDIOGRAM REPORT ---
*NOTICE TO RECEIVING CONSTITUTION PARTY AGENCY This information is strictly Confidential and protected under [place] law. [place] law prohibits you from making any further disclosure of this information unless further disclosure is expressly permitted by the written consent of the person to whom it pertains or is authorized by law. A general authorization for the release of medical or other information is not sufficient for this purpose. Hospital accepts no responsibility if the information is made available to any other person, INCLUDING THE PATIENT. Interpretation Summary * Name: LINDY CARRION Study Date: 03/17/2017 02:32 PM BP: 124/77 mmHg * Patient Location: C.2T\S\S242\S\2 HR: 60 * : 1950 (M/d/yyyy) Gender: Female Height: 68 in * Age: 66 yrs Ethnicity: [place] Weight: 217 lb * Ordering Physician: Michelet Alves * Referring Physician: Vasquez An D.O. * Performed By: Sena Cardenas [facility] * * Reason For Study: ASSESS LV FUNCTION WALL * BSA: 2.1 m2 * -- Conclusions -- * A focused study was performed per provider request to assess LV systolic function. Procedure Details * Limited views were obtained. * A contrast injection of Definity was performed to improve assessment of LV function. * Contrast was injected into an intravenous site in the left arm. * One vial of Definity ultrasound contrast was diluted in normal saline to a total volume of 10 ml. A total of '3' ml of solution was administered during imaging. * Lot # [id number] of Definity utilized for procedure. * Expiration date MAR 19. * The attending nurse who injected the contrast agent was SURESH HAYNES, PA. Left Ventricle * The left ventricle is normal in size. * There is mild concentric left ventricular hypertrophy. * Left ventricular systolic function is low normal. * The qualitative left ventricular ejection fraction=50% * No regional wall motion abnormalities noted. Atria * The left atrium is moderately dilated. Mitral Valve * The mitral valve is grossly normal. * There is no mitral valve stenosis. Pericardium/Pleural * There is no pericardial effusion. MMode 2D Measurements and Calculations IVSd 1.9 cm IVSs 2.0 cm LVIDd 4.8 cm LVIDs 3.6 cm LVPWd 1.6 cm LVPWs 1.5 cm IVS/LVPW 1.2 FS 25.9 % EDV(Teich) 107.8 ml ESV(Teich) 53.1 ml EF(Teich) 50.7 % EDV(cubed) 111.0 ml ESV(cubed) 45.2 ml EF(cubed) 59.2 % % IVS thick 6.5 % % LVPW thick -3.68 % LV mass(C)d 370.2 grams LV mass(C)dI 174.9 grams/m\S\2 LV mass(C)s 253.2 grams LV mass(C)sI 119.6 grams/m\S\2 SV(Teich) 54.7 ml SI(Teich) 25.9 ml/m\S\2 SV(cubed) 65.8 ml SI(cubed) 31.1 ml/m\S\2 Ao root diam 3.0 cm Ao root area 6.9 cm\S\2 LA dimension 4.5 cm LA/Ao 1.5 LVOT diam 2.1 cm LVOT area 3.5 cm\S\2
[2017-03-17] MEDS ORDERED: BTP80 PO ×2 (16:16)
[2017-03-17] MEDS ORDERED: NRV5 PO (16:16)
--- NOTE | 2017-03-17 16:21 | Discharge Instructions ---
Discharge Instructions Date of Service Mar 17, 2017. Admission Reason for Admission: A-FIB Discharge Discharge Diagnosis / Problem: Persistent atrial fibrillation s/p DCCV and sotalol loading Discharge Goals Goal(s): Improve disease control Activity Recommendations Activity Limitations: as noted below Lifting Limitations: gradually increase as tolerated Exercise/Sports Limitations: gradually increase as tolerated Shower/Bathe: no limitations Driving or Machine Use: resume 1 day after discharge . Instructions / Follow-Up Instructions / Follow-Up ACTIVITY RECOMMENDATIONS: Resume activities as tolerated with no limitations unless specified. _x_ No lifting [id number] for 24 hours. _x_ Do not engage in vigorous exercise, sexual activity, or sports for 24 hours. _x_ Do not drive or operate any motorized equipment for 24 hours. _x_ You may return to work/school tomorrow. _x_ Nothing to eat or drink until gag reflex returns. _x_ No HOT or WARM liquids for 12 hours. _x_ Avoid "scratchy" foods such as potato chips or pretzels for 24 hours following procedure. SPECIAL CARE: If you experience coughing up or vomiting of blood, contact Dr. Alves [phone] Current Hospital Diet Patient's current hospital diet: AHA Diet (Heart Healthy) Discharge Diet Recommended Diet: Low Sodium Diet (2gm Na) Procedures Procedures Performed: Transesophageal ECHO Direct current cardioversion Pending Studies Studies pending at discharge: no Medical Emergencies . Who to Call and When: Medical Emergencies: If at any time you feel your situation is an emergency, please call 911 immediately. . Non-Emergent Contact Non-Emergency issues call your: Primary Care Provider . . "Provider Documentation" section prepared by Michelet Alves. . VTE Core Measure Inpt VTE Proph given/why not?: Warfarin (Coumadin)
[2017-03-17] MEDS ORDERED: SOTALOL HCL 80 MG TAB PO ONE (16:30)
[2017-03-17] MEDS: PRAVASTATIN SOD 20 MG TAB PO SCH (17:03)
[2017-03-17] MEDS ORDERED: SOTALOL HCL 80 MG TAB PO SCH (21:00)
[2017-03-18] MEDS ORDERED: SOTALOL HCL 80 MG TAB PO SCH (09:00)
--- NOTE | 2017-03-18 11:06 | TEE ---
*NOTICE TO RECEIVING LIBERTARIAN AGENCY This information is strictly Confidential and protected under [place] law. [place] law prohibits you from making any further disclosure of this information unless further disclosure is expressly permitted by the written consent of the person to whom it pertains or is authorized by law. A general authorization for the release of medical or other information is not sufficient for this purpose. Hospital accepts no responsibility if the information is made available to any other person, INCLUDING THE PATIENT. Interpretation Summary * Name: LINDY CARRION Study Date: 03/17/2017 07:18 AM BP: 157/97 mmHg * Patient Location: C.2T\S\S242\S\2 HR: 86 * : 1950 (M/d/yyyy) Gender: Female Height: 68 in * Age: 66 yrs Ethnicity: [place] Weight: 215 lb * Ordering Physician: Michelet Alves * Referring Physician: Vasquez An D.O. * Performed By: Miesha Escoto RDCS * * Reason For Study: pre cardioversion, rule our clot * BSA: 2.1 m2 * PROBE IN 7:53AM * PROBE OUT 8:06AM * -- Conclusions -- * The rhythm is atrial fibrillation with RVR. * Left ventricular systolic function is moderately reduced. * Ejection Fraction = 35-40%. * There is mild concentric left ventricular hypertrophy. * The left atrium is moderately dilated. * No thrombus is detected in the left atrial appendage. * There is moderate mitral regurgitation. Procedure Details * SUZETTE Probe #2 utilized for procedure. * The study was performed in Cardiac Catheterization Lab. * Time out was conducted by the physician, nurse, and tissue recovery technician with positive identification of patient and procedure. * Informed consent for Transesophageal Echocardiogram was obtained prior to the procedure. * An intravenous line was placed. A topical anesthetic agent was used for oropharangeal anesthesia. A bite block was inserted. * Sedation performed by the anesthesia department. * The patient's vital signs, including blood pressure, heart rate, pulse oximetry and cardiac rhythm were monitored throughout the procedure . * A multifrequency, multiplane transesopheageal echocardiographic endoscope was inserted and manipulated in the standard fashion to achieve multiplane views. * The transesophageal probe was passed without difficulty. * The usual views were obtained; basal, mid-esophageal, transgastric and aortic views. * The patient tolerated the procedure well without evidence of orophangeal or esophageal trauma. * A 2D transesophageal echocardiogram with spectral and color flow Doppler was performed. * Contrast injection with agitated saline was performed. * 150 PROPOFOL Left Ventricle * The rhythm is atrial fibrillation with RVR. * There is mild concentric left ventricular hypertrophy. * Left ventricular systolic function is moderately reduced. * Ejection Fraction = 35-40%. * There is moderate global hypokinesis of the left ventricle. Right Ventricle * The right ventricular cavity size is normal (basal dimension <4.2 cm in right ventricular apical 4-chamber view). * The right ventricular systolic function is mildly reduced. Atria * The left atrium is moderately dilated. * No thrombus is detected in the left atrial appendage. * The right atrium is mildly dilated. * The interatrial septum is intact with no evidence for an atrial septal defect. Mitral Valve * The mitral valve anatomy is normal. * There is no mitral valve stenosis. * There is moderate mitral regurgitation. Tricuspid Valve * The tricuspid valve anatomy is normal. * There is no tricuspid stenosis. * There is trace tricuspid regurgitation. * Doppler findings do not suggest pulmonary hypertension. Aortic Valve * The aortic valve is tricuspid. The leaflet thickness if normal. There is no aortic stenosis, and no significant insufficiency. * No hemodynamically significant valvular aortic stenosis. * No aortic regurgitation is present. Pulmonic Valve * The pulmonary valve is not well seen, but the Doppler examination is normal without significant regurgitation or stenosis. Great Vessels * The aortic root is normal size. * Ascending aorta of normal dimension * Mild atherosclerotic plaque(s) in the descending aorta. Pericardium * There is no pericardial effusion.
== END 2017-03-17 18:26 | disposition home or self-care (01) | DRG 310 ==
LOC: C.2T 12:30
PROVIDERS: ADMIT Internal Medicine Cardiovascular Disease; ATTEND Specialist
PROC: 5A2204Z Restoration of Cardiac Rhythm, Single (ICD-10-PCS; principal; 2017-03-17 11:45)
DX: I48.1 Persistent atrial fibrillation (principal); I10 Essential (primary) hypertension; F41.1 Generalized anxiety disorder; E03.9 Hypothyroidism, unspecified; I48.0 Paroxysmal atrial fibrillation; Z79.01 Long term (current) use of anticoagulants; F17.200 Nicotine dependence, unspecified, uncomplicated; Z79.82 Long term (current) use of aspirin

== ENCOUNTER → 2017-11-11 | Day surgery (SDC) | payer OTHER ==
[~2017-11-11] VITALS: Ht 172.7 cm; Wt 100.0 kg
[2017-11-11] VITALS (8 sets, daily range): BP systolic 109–146; BP diastolic 66–102; PULSE 49–94; TEMP 36.4; O2SAT 93–97; Ht 172.7 cm; Wt 100.0 kg
[~2017-11-11] MED LIST changes: +ALBUTEROL HFA 8 GM INHALER INH ONE; -ATEN50TA8 PO; +BTP80 PO; +CRD200 PO; +DIAZ-165 PO; +LEVO150T9 PO; -LEVO175T3 PO; +NRV5 PO; -TRAZ50TA35 PO; +VNTHFA/IN INH
--- NOTE | 2017-11-11 07:33 | History & Physical Bridge Note ---
H&P Re-Evaluation Bridge Note: I have examined the patient, reviewed the History & Physical and in the interval since the performance of the History & Physical I have noted the following changes of clinical significance: No changes noted
--- NOTE | 2017-11-11 08:06 | [facility] Post Operative Brief Note ---
Immediate Operative Summary Operative Date Nov 11, 2017. Pre-Operative Diagnosis persistent atrial fibrillation Post-Operative Diagnosis same plus sinus bradycardia Procedure(s) Performed synchronized cardioversion Surgeon margaret romero Casting Agent Surgeon(s) none Estimated Blood Loss none Findings See Below see official report Fluids (cc crystalloids) 400cc Specimens none Drains None Anesthesia Type MAC Complication(s) none Disposition Accompanied Pt To Recover: yes Disposition: general production laborer holding
--- NOTE | 2017-11-11 08:09 | Discharge Instructions ---
Discharge Instructions Date of Service Nov 11, 2017. Visit Reason for Visit: Afib *Zoë To Do* Discharge Discharge Diagnosis / Problem: persistent atrial fibrillation and sinus bradycardia Discharge Goals Goal(s): Improve function Medications Stopped Medications Name(s): none Restart Stopped Medication(s): change amiodarone to 200mg daily Activity Recommendations Activity Limitations: resume your previous activity Driving or Machine Use: resume 1 day after discharge Anesthesia . Post Anesthesia Instructions: If you have had General Anesthesia or IV Sedation: * Do not drive today. * Resume driving when surgeon permits. * Do not make important decisions or sign legal documents today. * Call surgeon for: 1. Temperature elevations greater than 101 degrees F. 2. Uncontrollable pain. 3. Excessive bleeding. 4. Persistent nausea and vomiting. 5. Medication intolerance (nausea, vomiting or rash). * For nausea and vomiting use only clear liquids such as: tea, soda, bouillon until nausea subsides, then gradually increase diet as tolerated. * If you have any concerns or questions, call your surgeon's office. If physician is unavailable and it is an emergency, call 911 or go to the nearest emergency room. . Diet Recommendations Recommended Home Diet: resume previous diet Procedures Procedures Performed: synchronized cardioversion Pending Studies Studies pending at discharge: no Medical Emergencies . Who to Call and When: Medical Emergencies: If at any time you feel your situation is an emergency, please call 911 immediately. . Non-Emergent Contact Non-Emergency issues call your: Quantitative Research Analyst . . "Provider Documentation" section prepared by Mariann Camp. .
--- NOTE | 2017-11-11 09:04 | Anesthesiology Progress Note ---
Anesthesia Post Op Note Date & Time Nov 11, 2017 at 09:01 Vital Signs Pain Intensity: 0 Vital Signs Past 12 Hours Date Time Temp Pulse Resp B/P (MAP) Pulse Ox O2 Delivery O2 Flow Rate FiO2 11/11/17 08:45 52 16 135/80 (98) 93 Room Air 11/11/17 08:30 56 16 142/70 (94) 93 Room Air 11/11/17 08:25 57 16 128/74 (92) 93 Room Air 11/11/17 08:20 51 16 110/69 (83) 93 Room Air 11/11/17 08:15 50 16 118/68 (85) 93 Room Air 11/11/17 08:10 50 16 110/69 (83) 94 Nasal Cannula 3 11/11/17 08:08 51 16 120/66 94 Nasal Cannula 3 11/11/17 08:05 50 16 120/66 97 Nasal Cannula 6 11/11/17 08:03 49 16 109/66 97 Nasal Cannula 6 11/11/17 08:00 78 16 141/83 97 Nasal Cannula 6 11/11/17 07:58 84 16 136/86 97 Nasal Cannula 6 11/11/17 07:55 84 16 146/102 96 Room Air 11/11/17 07:11 36.4 94 16 146/93 (110) 96 Room Air Notes Mental Status: alert / awake / arousable, participated in evaluation Pt Amnestic to Procedure: Yes Nausea / Vomiting: adequately controlled Pain: adequately controlled Airway Patency, RR, SpO2: stable & adequate BP & HR: stable & adequate Hydration State: stable & adequate Anesthetic Complications: no major complications apparent The patient did well during the procedure with no issues. Her preop oxygen saturation was 93% on RA and she had bilateral expiratory wheezing on exam which she stated is not unusual for her. The patient is a smoker and states that she is not compliant with her inhaler use. I had her take 3 puffs of an Albuterol inhaler which improved her wheezing. She had no problems with the anesthesia and is now awake in recovery eating breakfast. Her oxygen saturation is back to her baseline of 93% on RA and she stated that her breathing feels good with no complaints. I encouraged her to quit smoking and to be more compliant with her medications.
--- NOTE | 2017-11-12 15:36 | OPERATIVE REPORT ---
DATE OF OPERATION: 11/11/2017 PREOPERATIVE DIAGNOSES: Persistent atrial fibrillation, symptomatic, with rapid ventricular response. POSTOPERATIVE DIAGNOSES: Persistent atrial fibrillation, symptomatic, with rapid ventricular response. PROCEDURE: Synchronized cardioversion. SURGEON: Mariann Camp DO. HAIR SPRING CUTTER: None. ANESTHESIA: Monitored anesthetic care administered via anesthesiology, a total of 90 mg of propofol and 20 mg of lidocaine. COMPLICATIONS: None. CONDITION: Stable. URINE OUTPUT: Not applicable. SPECIMENS: None. FINDINGS: See below. DRAINS: None. INDICATIONS: This is a 67-year-old female with past medical history for paroxysmal atrial fibrillation diagnosed initially in 2013. She underwent a cardioversion in January 2016 and then again in November 2015 and was started on sotalol in January of 2017 and had a cardioversion in March of 2017 and then most recently in September of 2017 was found to be back in afib then unsuccessful cardioversion by her primary manager reading thus she was referred to me. 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 Due to the persistent atrial fibrillation and symptoms, she was started on amiodarone as an outpatient 200 mg 3 times a day and came in today for another repeat cardioversion with antiarrhythmics on board. CONSENT: Consent was obtained prior to patient coming to the procedure room. Patient was informed of the risks, benefits, and alternatives of procedure. Risks include but not limited to sudden cardiac , cardiac arrhythmias, cerebrovascular accident, myocardial infarction and redness on the skin. She understood these risks and agreed to the procedure as planned. Informed consent was obtained. DESCRIPTION OF THE PROCEDURE: Patient was brought into the procedure room in a fasting state. She was connected to slow continuous IV fluids as well as cardiac monitoring. After an appropriate timeout, anesthesia was administered and once she was asleep enough, we did a synchronized 200 joule shock which brought her back into sinus bradycardia at 49 beats per minute. She then woke up and had no neurological problems or defects. She was ultimately discharged after appropriate monitoring after the anesthesia. PLAN: I will see her in the office in 1 month's time. She is to decrease the amiodarone to 200 mg daily. Continue with the Coumadin. She should have weekly INR checks through our Coumadin clinic for the next month. I attest to the content of the Intraoperative Record and any orders documented therein. Any exception s are noted below.
== END | disposition home or self-care (01) ==
LOC: C.CATH 07:01
PROVIDERS: ATTEND Internal Medicine
DX: I48.1 Persistent atrial fibrillation (principal); R00.1 Bradycardia, unspecified; I42.9 Cardiomyopathy, unspecified; I10 Essential (primary) hypertension; E78.5 Hyperlipidemia, unspecified; E03.9 Hypothyroidism, unspecified; Z79.01 Long term (current) use of anticoagulants; M15.9 Polyosteoarthritis, unspecified; F17.200 Nicotine dependence, unspecified, uncomplicated; F41.1 Generalized anxiety disorder; L80 Vitiligo; Z79.899 Other long term (current) drug therapy; Z79.82 Long term (current) use of aspirin; Z98.41 Cataract extraction status, right eye; Z98.42 Cataract extraction status, left eye; Z90.710 Acquired absence of both cervix and uterus; Z83.3 Family history of diabetes mellitus; Z82.3 Family history of stroke; Z88.8 Allergy status to other drugs, medicaments and biological substances; Z88.6 Allergy status to analgesic agent

== ENCOUNTER 2017-12-02 17:45 | Inpatient (IN) | payer OTHER ==
[~2017-12-02] VITALS: Ht 172.7 cm; Wt 104.2 kg
[~2017-12-02 17:45] MED LIST changes: -ALBUTEROL HFA 8 GM INHALER INH ONE; -BTP80 PO
[2017-12-02] MEDS ORDERED: METOPROLOL TARTRATE 1 MG/ML VIAL IV STA (18:10)
[2017-12-02] MEDS ORDERED: FUROSEMIDE 40 MG/4 ML VIAL IV STA (18:14)
[2017-12-02] MEDS ORDERED: METOPROLOL TARTRATE 1 MG/ML VIAL ONE (18:14)
--- NOTE | 2017-12-02 18:18 | EMERGENCY ROOM VISIT NOTE ---
History Report prepared by Darrius: Felicitas Andrew Under the Supervision of: Dr. Mariella Ariza M.D. First contact with patient: 18:05 Chief Complaint: IRREGULAR HEARTBEAT Stated Complaint: AFIB, 130 BPM- REFERRED History of Present Illness The patient is a 67 year old female who presents to the Emergency Room with complaints of persistent general arrhythmia for four days. She has a history of atrial fibrillation and five cardioversions. She states that she could tell when she developed atrial fibrillation again, because she developed shortness of breath, dizziness with standing and sitting up. She is currently taking Coumadin. Her last INR was 3.2. She reports a recent weight gain. She states her heart rate is higher than it has ever been. She states this is the first time she has felt palpitations. She is a current smoker. She smokes 3/4 of a pack of cigarettes. She denies taking any Lasix. She denies any chest pain. She reports slight jaw pain that lasted for a few hours. Source of History: patient Onset: four days Position: other (general) Quality: other (arrhythmia ) Timing: other (persistent) Associated Symptoms: + SOB, No chest pain Note: Notes dizziness, jaw pain, recent weight gain, and palpitations. Review of Systems See HPI for pertinent positives & negatives. A total of 10 systems reviewed and were otherwise negative. Past Medical & Surgical Medical Problems: (1) Atrial fibrillation with RVR (2) Rapid atrial fibrillation Family History Heart disease Social History Smoking Status: Current Every Day Smoker (3/4 ppd) Smokeless Tobacco Use: No Alcohol Use: occasionally Drug Use: none Marital Status: Housing Status: lives with family Occupation Status: employed Current/Historical Medications Scheduled Amiodarone Hcl (Cordarone), 200 MG PO DAILY Amlodipine (Norvasc), 5 MG PO QAM Aspirin (Aspirin Ec), 81 MG PO QAM Hydrochlorothiazide (Hydrochlorothiazide), 12.5 MG PO QAM Levothyroxine Sodium (Levothyroxine Sodium), 1 TAB PO DAILY Losartan Potassium (Cozaar), 1 TAB PO DAILY Paroxetine (Paxil), 40 MG PO QAM Pravastatin (Pravachol ), 20 MG PO HS Warfarin Sod (Jantoven), 5 MG PO [id number] Warfarin Sodium (Coumadin), 2.5 MG PO WK Scheduled PRN Albuterol Hfa (Ventolin Hfa), 1-2 PUFFS INH Q6H PRN for Shortness of Breath Diazepam (Valium), 5 MG PO HS PRN for Sleep Hydrocodon/Acetaminophen 7.5MG/300MG (Vicodin Es (7.5MG/300MG)), 1 TAB PO Q6H PRN for Pain Allergies Coded Allergies: NSAIDs (Verified Allergy, Unknown, STOMACH UPSET, 12/02/17) Physical Exam Vital Signs Date Time Temp Pulse Resp B/P (MAP) Pulse Ox O2 Delivery O2 Flow Rate FiO2 12/02/17 22:09 94 12/02/17 21:30 98 22 142/90 94 Room Air 12/02/17 20:01 90 24 119/89 94 Room Air 12/02/17 19:39 108 16 114/56 94 Room Air 12/02/17 18:17 125 120/87 12/02/17 18:03 127 12/02/17 18:02 Nasal Cannula 2.0 12/02/17 18:01 92 Room Air 12/02/17 17:49 36.4 89 20 132/85 94 Room Air Physical Exam Vital signs reviewed. General: Well-appearing, in no significant distress. HEENT: No scleral icterus, PERRLA, neck supple. Atraumatic. Cardiovascular: Tachycardic rate and irregular rhythm, no extra sounds. Pulmonary: Scattered wheezing bilateral lung field, normal work of breathing. Abdomen: Soft, nontender, nondistended, positive bowel sounds. Musculoskeletal: Atraumatic, minimal peripheral edema. Neurologic: Patient awake alert and oriented x 3 Skin: Warm, dry, no rash Medical Decision & Procedures ER Provider Diagnostic Interpretation: Radiology results as stated below per my review and radiologist interpretation: SINGLE VIEW CHEST CLINICAL HISTORY: Atrial fibrillation. Congestive heart failure. FINDINGS: An AP, portable, upright chest radiograph is obtained. No prior studies are available for comparison at the time of dictation. The examination is degraded by portable technique, apical lordotic positioning, and patient rotation. The heart is enlarged and there is atherosclerotic calcification of the thoracic aorta. The pulmonary vasculature is noncongested. The lungs and pleural spaces are clear. No pneumothorax is seen. The skeletal structures are osteopenic. The bony thorax is grossly intact. IMPRESSION: Cardiomegaly with no acute cardiopulmonary abnormality. Electronically signed by: Rufus Dixon M.D. 12/02/2017 6:37 PM Dictated Date/Time: 12/02/2017 6:36 PM Laboratory Results 12/02/17 18:10 Red Blood Count 5.03, Mean Corpuscular Volume 88.7, Mean Corpuscular Hemoglobin 32.0, Mean Corpuscular Hemoglobin Concent 36.1, Mean Platelet Volume 10.0, Neutrophils (%) (Auto) 64.7, Lymphocytes (%) (Auto) 26.5, Monocytes (%) (Auto) 5.8, Eosinophils (%) (Auto) 2.0, Basophils (%) (Auto) 0.5, Neutrophils # (Auto) 6.46, Lymphocytes # (Auto) 2.65, Monocytes # (Auto) 0.58, Eosinophils # (Auto) 0.20, Basophils # (Auto) 0.05 12/02/17 18:10 Test 12/02/17 18:10 White Blood Count 9.99 K/uL (4.8-10.8) Red Blood Count 5.03 M/uL (4.2-5.4) Hemoglobin 16.1 g/dL (12.0-16.0) Hematocrit 44.6 % (37-47) Mean Corpuscular Volume 88.7 fL (80-100) Mean Corpuscular Hemoglobin 32.0 pg (25-34) Mean Corpuscular Hemoglobin Concent 36.1 g/dl (32-36) Platelet Count 256 K/uL (130-400) Mean Platelet Volume 10.0 fL (7.4-10.4) Neutrophils (%) (Auto) 64.7 % Lymphocytes (%) (Auto) 26.5 % Monocytes (%) (Auto) 5.8 % Eosinophils (%) (Auto) 2.0 % Basophils (%) (Auto) 0.5 % Neutrophils # (Auto) 6.46 K/uL (1.4-6.5) Lymphocytes # (Auto) 2.65 K/uL (1.2-3.4) Monocytes # (Auto) 0.58 K/uL (0.11-0.59) Eosinophils # (Auto) 0.20 K/uL (0-0.5) Basophils # (Auto) 0.05 K/uL (0-0.2) RDW Standard Deviation 40.0 fL (36.4-46.3) RDW Coefficient of Variation 12.6 % (11.5-14.5) Immature Granulocyte % (Auto) 0.5 % Immature Granulocyte # (Auto) 0.05 K/uL (0.00-0.02) Prothrombin Time 33.1 SECONDS (9.0-12.0) Prothromb Time International Ratio 3.2 (0.9-1.1) Activated Partial Thromboplast Time 37.5 SECONDS (21.0-31.0) Partial Thromboplastin Ratio 1.4 Anion Gap 8.0 mmol/L (3-11) Est Creatinine Clear Calc Drug Dose 57.0 ml/min Estimated GFR () 53.6 Estimated GFR (Non- 46.3 BUN/Creatinine Ratio 17.4 (10-20) Calcium Level 8.9 mg/dl (8.5-10.1) Phosphorus Level 3.2 mg/dl (2.5-4.9) Magnesium Level 1.3 mg/dl (1.8-2.4) Total Bilirubin 1.1 mg/dl (0.2-1) Direct Bilirubin 0.3 mg/dl (0-0.2) Aspartate Amino Transf (AST/SGOT) 40 U/L (15-37) Alanine Aminotransferase (ALT/SGPT) 40 U/L (12-78) Alkaline Phosphatase 79 U/L (45-117) Troponin I < 0.015 ng/ml (0-0.045) Total Protein 7.3 gm/dl (6.4-8.2) Albumin 4.0 gm/dl (3.4-5.0) Thyroid Stimulating Hormone (TSH) 2.830 uIu/ml (0.300-4.500) Laboratory results per my review. Medications Administered Medications (Trade) Dose Ordered Sig/Maria Victoria Route Start Time Stop Time Status Last Admin Dose Admin Metoprolol Tartrate (Lopressor Iv) 5 mg NOW STAT IV 12/02/17 18:10 12/02/17 18:12 DC 12/02/17 18:17 5 MG Furosemide (Lasix Inj) 40 mg NOW STAT IV 12/02/17 18:14 12/02/17 18:15 DC 12/02/17 18:33 40 MG Magnesium Sulfate (Magnesium Sulfate 1gm / D5W) 2 gm NOW STAT IV 12/02/17 18:57 12/02/17 18:59 DC 12/02/17 19:32 2 GM Potassium Chloride 100 ml @ 100 mls/hr NOW STAT IV 12/02/17 18:57 12/02/17 19:56 DC 12/02/17 19:32 100 MLS/HR Potassium Chloride (Klor-Con M10) 40 meq NOW STAT PO 12/02/17 20:38 12/02/17 20:43 DC 12/02/17 21:29 40 MEQ Magnesium Sulfate (Magnesium Sulfate 1gm / D5W) 1 gm STK-MED ONCE IV 12/02/17 21:28 12/02/17 21:29 DC 12/02/17 21:30 1 GM ECG Per My Interpretation Indication: palpitations Rate (beats per minute): 131 Rhythm: atrial fibrillation, other (with RVR) Findings: nonspecific-ST abn (Anterior and Lateral), other (QTC 543 ms) ED Course 1807: Past medical records reviewed. The patient was evaluated in room A10. A complete history and physical examination was performed. 1809: Ordered Lopressor 5 mg IV 1813: Ordered Lasix 40 mg IV 1856: Ordered Potassium Chloride 100 ml @ 100 mls/hr IV and Magnesium Sulfate 2 gm IV 1921: Per nurse, the patient's heart rate is currently 109. 2009: I reassessed the patient at this time. The patient is not feeling well. She does not feel comfortable to go home. 2011: [facility] the [facility]' s case. The patient will be evaluated by the [facility] for further management. Medical Decision Differential diagnosis: Etiologies such as premature contractions, electrolyte abnormality, cardiac dysrhythmia, thyroid dysfunction, pulmonary embolism, infection, gastrointestinal, as well as others were entertained. This patient was evaluated and appeared to be in no significant distress. Patient was found to be in an atrial fibrillation with RVR. Patient was administered 5 mg of IV Lopressor. Laboratory work indicates hypokalemia and hypomagnesemia. She was given 2 g of IV mag and 20 mEq of IV potassium. Cardiac enzymes are normal. Patient did receive 40 mg of IV Lasix for complaints of fluid retention over the last several days. On reevaluation, the patient stated she has been diuresing. She is feeling improved with her heart rate controlled. She remains in atrial fibrillation. The patient will be evaluated by the hospitalist service for further management and cardiology evaluation. She is aware of the plan and agrees. Medication Reconcilliation Current Medication List: was personally reviewed by me Blood Pressure Screening Patient's blood pressure: Elevated blood pressure Blood pressure disposition: Elevated BP felt to be situational monitored by hospitalist Consults Time Called: 2011 Consulting Physician: [facility] We discussed the patient's case. The patient will be evaluated by the [facility] for further management. Impression Primary Impression: Rapid atrial fibrillation Additional Impressions: Hypokalemia Hypomagnesemia Critical Care I have personally spent greater than 35 minutes of critical care time in the direct management of this patient. This includes bedside care, interpretation of diagnostic studies, and testing, discussion with consultants, patient, and family members, and other required patient management activities. This 35 minutes is in excess of all separately billable procedures. Scribe Attestation The scribe's documentation has been prepared under my direction and personally reviewed by me in its entirety. I confirm that the note above accurately reflects all work, treatment, procedures, and medical decision making performed by me. Departure Information Dispostion Being Evaluated By Hospitalist Referrals Matthew Barahona D.O. (PCP) Patient Instructions My [facility] Problem Qualifiers
[2017-12-02 18:23] LABS: BASO % 0.5 %; BASO ABS # 0.05 K/uL (0-0.2); HEMATOCRIT 44.6 % (37-47); HEMOGLOBIN 16.1 g/dL (12.0-16.0); IG# 0.05 K/uL (0.00-0.02); LYMPH % 26.5 %; LYMPH ABS # 2.65 K/uL (1.2-3.4); MEAN CELL VOLUME 88.7 fL (80-100); MEAN CORPUSCULAR HGB CONC 36.1 g/dl (32-36); MONO % 5.8 %; MONO ABS # 0.58 K/uL (0.11-0.59); NEUT % 64.7 %; NEUT ABS # 6.46 K/uL (1.4-6.5); PLATELET COUNT 256 K/uL (130-400); RED CELL DISTRIBUTION WIDTH CV 12.6 % (11.5-14.5); WHITE BLOOD COUNT 9.99 K/uL (4.8-10.8)
[2017-12-02] MEDS ORDERED: HYDR12.55 PO (18:30)
[2017-12-02] MEDS ORDERED: WARF5TAB90 PO (18:30)
[2017-12-02] MEDS ORDERED: AMLO-110 PO (18:30)
[2017-12-02] MEDS ORDERED: AMIO200T4 PO (18:30)
[2017-12-02 18:33] LABS: INR 3.2 (0.9-1.1); PTT PATIENT 37.5 SECONDS (21.0-31.0)
--- NOTE | 2017-12-02 18:39 | DIAGNOSTIC IMAGING REPORT ---
SINGLE VIEW CHEST CLINICAL HISTORY: Atrial fibrillation. Congestive heart failure. FINDINGS: An AP, portable, upright chest radiograph is obtained. No prior studies are available for comparison at the time of dictation. The examination is degraded by portable technique, apical lordotic positioning, and patient rotation. The heart is enlarged and there is atherosclerotic calcification of the thoracic aorta. The pulmonary vasculature is noncongested. The lungs and pleural spaces are clear. No pneumothorax is seen. The skeletal structures are osteopenic. The bony thorax is grossly intact. IMPRESSION: Cardiomegaly with no acute cardiopulmonary abnormality. Electronically signed by: Rufus Dixon M.D. 12/02/2017 6:37 PM Dictated Date/Time: 12/02/2017 6:36 PM
[2017-12-02 18:55] LABS: ALT/SGPT 40 U/L (12-78); AST/SGOT 40 U/L (15-37); BLOOD UREA NITROGEN 21 mg/dl (7-18); CALCIUM 8.9 mg/dl (8.5-10.1); CARBON DIOXIDE 26 mmol/L (21-32); CREATININE 1.21 mg/dl (0.60-1.20); GLUCOSE 209 mg/dl (70-99); POTASSIUM 3.2 mmol/L (3.5-5.1); SODIUM 139 mmol/L (136-145)
[2017-12-02] MEDS ORDERED: MAGNESIUM SULFATE 1GM / D5W 1 GM BAG IV STA (18:57)
[2017-12-02] MEDS ORDERED: POTASSIUM CHLR 10 MEQ / WTR 100 ML IV STA (18:57)
[2017-12-02 18:59] LABS: ALKALINE PHOSPHATASE 79 U/L (45-117); TOTAL PROTEIN 7.3 gm/dl (6.4-8.2)
[2017-12-02] MEDS ORDERED: POTASSIUM CHLORIDE 10 MEQ TABCR PO STA ×2 (20:38→22:44)
[2017-12-02] MEDS ORDERED: MAGNESIUM SULFATE 1GM / D5W 100 ML IV STA (20:41)
[2017-12-02] MEDS ORDERED: MAGNESIUM SULFATE 1GM / D5W 1 GM BAG IV ONE (21:28)
[2017-12-02] MEDS ORDERED: AMOXICILLIN/CLAVULANATE TAB 875 MG TAB PO STA (22:48)
[2017-12-02 23:10] VITALS: BP 150/94; PULSE 97; TEMP 36.7; O2SAT 93; Ht 172.7 cm; Wt 104.2 kg
[2017-12-02] MEDS ORDERED: NICOTINE 14 MG/24 HR TDSY TD ONE (23:24)
[2017-12-02] MEDS ORDERED: PRAVASTATIN SOD 20 MG TAB PO ONE (23:24)
[2017-12-02] MEDS ORDERED: HYDROCODONE/ACETAMINOPHEN 7.5/325MG TAB PO PRN (23:30)
[2017-12-02] MEDS ORDERED: TRAMADOL HCL 50 MG TAB PO PRN (23:30)
[2017-12-02] MEDS ORDERED: HYDROmorphone INJ 0.5 MG/0.5 ML SYR IV PRN (23:30)
[2017-12-02] MEDS ORDERED: LORAZEPAM 2 MG/ML 1 ML VIAL IV PRN (23:30)
[2017-12-02] MEDS ORDERED: ACETAMINOPHEN 325 MG TAB PO PRN (23:30)
[2017-12-02] MEDS ORDERED: PROCHLORPERAZINE INJ 5 MG in SYRINGE 4 ML IV PRN (23:30)
[2017-12-02] MEDS ORDERED: SODIUM CHLORIDE 0.65% NA SOLN 45 ML (OCEAN) PRN (23:30)
[2017-12-02] MEDS ORDERED: NITROGLYCERIN 0.4 MG SL PER TAB CHARGE SL PRN (23:30)
[2017-12-02] MEDS ORDERED: NSS + 20MEQ KCL 1000ML 1,000 ML IV SCH (23:59)
[2017-12-03] VITALS (7 sets, daily range): BP systolic 128–159; BP diastolic 43–91; PULSE 76–97; TEMP 36.4–37.2; O2SAT 93–95
[2017-12-03] MEDS: DIAZEPAM 5MG TAB PO PRN ×2 (00:59→22:12)
[2017-12-03] MEDS: LEVOTHYROXINE 150 MCG TAB PO SCH (06:07)
[2017-12-03 06:20] LABS: HEMOGLOBIN A1C 6.9 % (4.5-5.6)
[2017-12-03 06:55] LABS: BASO % 0.5 %; BASO ABS # 0.04 K/uL (0-0.2); EOS % 3.9 %; EOS ABS # 0.32 K/uL (0-0.5); HEMATOCRIT 44.8 % (37-47); IG# 0.03 K/uL (0.00-0.02); LYMPH % 36.1 %; LYMPH ABS # 2.99 K/uL (1.2-3.4); MEAN CELL VOLUME 89.6 fL (80-100); MEAN CORPUSCULAR HGB CONC 35.7 g/dl (32-36); MEAN PLATELET VOLUME 9.7 fL (7.4-10.4); MONO % 9.8 %; MONO ABS # 0.81 K/uL (0.11-0.59); NEUT % 49.3 %; NEUT ABS # 4.09 K/uL (1.4-6.5); PLATELET COUNT 209 K/uL (130-400); RED CELL DISTRIBUTION WIDTH CV 12.7 % (11.5-14.5); RED CELL DISTRIBUTION WIDTH SD 40.9 fL (36.4-46.3); WHITE BLOOD COUNT 8.28 K/uL (4.8-10.8)
[2017-12-03 07:15] LABS: INR 2.8 (0.9-1.1)
[2017-12-03 07:29] LABS: CALCIUM 8.9 mg/dl (8.5-10.1); CREATININE 0.87 mg/dl (0.60-1.20); POTASSIUM 3.8 mmol/L (3.5-5.1)
[2017-12-03] MEDS: AMOXICILLIN/CLAVULANATE TAB 875 MG TAB PO SCH ×2 (07:29→17:42)
[2017-12-03] MEDS: PAROXETINE 20 MG TAB PO SCH (07:30)
[2017-12-03] MEDS: NICOTINE 14 MG/24 HR TDSY TD SCH (07:31)
[2017-12-03] MEDS: ASPIRIN 81 MG ECTAB PO SCH (07:31)
[2017-12-03] MEDS ORDERED: AMIODARONE 200 MG TAB PO SCH (09:00)
[2017-12-03] MEDS ORDERED: AUGMENTIN~PHARMACY CONSULT IN PROGRESS PRN (09:00)
[2017-12-03] MEDS ORDERED: AMLODIPINE BESYLATE 5 MG TAB PO SCH (09:00)
[2017-12-03] MEDS ORDERED: PERFLUTREN LIPID MICROSPHERE (DEFINITY) IV ONE (09:06)
--- NOTE | 2017-12-03 09:23 | HISTORY & PHYSICAL EXAMINATION ---
DATE OF ADMISSION: 12/02/2017 PRIMARY CARE DOCTOR: Dr. Barahona. The patient is admitted on 12/02/2017. CHIEF COMPLAINT: Palpitations. HISTORY OF PRESENT ILLNESS: History obtained from patient and records. Medical history is significant for chronic systolic heart failure EF 35-40 (TTE 2017), hypertension, AFib, status post cardioversion on Coumadin, ongoing tobacco abuse, hypothyroidism. In October 2017, patient underwent elective cardioversion for persistent AFib. Patient was well until a few days ago when she felt like she was in AFib again, generalized weakness, nasal sinus congestion, initially clear later productive of yellow drainage. No unusual leg swelling, no chest pain. Appetite not too good. Some stress at home caring for her with medical issues. Patient is compliant with home meds. Patient went to the Emergency Room. Noted to be in rapid AFib, heart rate in the 120s. Patient given metoprolol in the ER and Furosemide. Heart rate currently in the 90s. Medical history as above. A 2D echo from 03/18/2017 showed EF of 35-40%, LVH, moderate MR. SURGERIES: She has had cataract surgery, cholecystectomy, back surgery, hysterectomy, gynecologic procedures. HOME MEDICATIONS: Coumadin, Vicodin, Cozaar, Paxil, Pravachol, Ventolin, Cordarone, aspirin, Norvasc ALLERGIES: NSAIDS. FAMILY HISTORY: There is a family of diabetes, stroke, basal cell cancer. PERSONAL AND SOCIAL HISTORY: One-half pack daily. No chronic intake of alcoholic beverages. Retired from factory work. REVIEW OF SYSTEMS: As per HPI. All 10 systems reviewed. All other ROS negative. PHYSICAL EXAMINATION: VITAL SIGNS: Blood pressure was noted to be 120/80, pulse rate 120 later 98, RR 24, temperature 36.7, sats 93 on room air. GENERAL: Noted to be anxious, obese, respiratory distress. SKIN: Normal color, warm. HEENT: [place] palpebral conjunctivae. No ptosis. Dry mucosa. NECK: Short, supple. CHEST: Decreased breath sounds. No tenderness. HEART: Irregular, systolic murmur. ABDOMEN: Some distention and nontender. EXTREMITIES: No edema. No tenderness. No gross deformities. NEUROLOGIC: Coherent. No gross focality. LABS: Hemoglobin was noted to be Hg 13 hematocrit 41, white cell count 9.9, platelets 256. Sodium noted to be 139, potassium 3.2, chloride 105, CO2 26, glucose 209. Chest x-ray cardiomegaly. EKG as per my interpretation, rate 130, AFib, some ST depressions in the inferolateral leads, LVH. ASSESSMENT: 1. Recurrent atrial fibrillation history of cardioversion 10/2017 possible precipitants : electrolyte abnormalities secondary to worsening chronic diarrhea symptoms ( possible IBS, rule out C. difficile) complicated rhinosinusitis, no sepsis. Anxiety 2. Chronic systolic heart failure, EF of 35-40%. Patient slightly on the dry side 3. ARF, secondary to illness 4. hypertension, stable. 5. Hyperglycemia, rule out DM. 6. Ongoing tobacco abuse PLAN: PCU Facilitate home Amiodarone. update 2D echo Cardio consult in AM RE recurrent AF; n.p.o. sips /after midnight for possible cardioversion in the morning Replace electrolytes Monitor creatinine response to gentle IV hydration; hold home ARB for now until creatinine at baseline Augmentin for complicated sinusitis. Stool C. difficile anxiolytic as needed Check hemoglobin A1c. nicotine patch. DVT prophylaxis, Coumadin INR 2-3. Full code. MTDD
--- NOTE | 2017-12-03 10:56 | Cardiology Consultation ---
Cardiology Consultation Date of Consultation: December 03, 2017 Requesting Physician: Leon Attending Coil Tier: [place] (Desmond Ramirez PA-C) History of Present Illness Mrs. Tejeda is a 67 year old female who is being seen at the request of Dr. Quintero. Reason for consultation is recurrent atrial fibrillation. Mrs. Tejeda notes "Wednesday night I could tell I went back into atrial fibrillation." She states that this was the first time she could actual tachypalpitations described as "my heart hitting my chest.". She notes a feeling dizzy, short of breath, tired, and with ongoing palpitations on Wednesday requiring reduction in her normal activities. She notes make an appointment last to see her PCP, Dr. Barahona, to discuss discontinuation of chronic Vicodin therapy and transitioning to medical marijuana. She notes evaluation by Dr. Barahona yesterday, presenting with dizziness and weakness. EKG revealed atrial fibrillation with a rapid ventricular response for which she was referred to [facility] emergency room for further evaluation and treatment. She was seen by Dr. Mariella Ariza in the ER. She was noted to be hypokalemic and hypomagnesemic. She was given potassium and magnesium supplementation, 5 mg of IV Lopressor, and 40 mg of IV furosemide for acute decompensated systolic heart failure. The above treatment resulted in improvement in symptoms. She was then admitted to the progressive care unit where she has been on continuous telemetry monitoring which is revealed atrial fibrillation ranging from 90-140 bpm. EKG on presentation revealed atrial fibrillation at [address] T-wave changes inferiorly and laterally, worsening anterior ST depression, and a QTC of 543 ms. Repeat EKG this morning reveals atrial fibrillation with a ventricular rate of 94 bpm, incomplete left bundle branch block pattern, inferior ST wave changes and a QTC of 550 ms. Her presenting symptoms have improved to some extent though not resolved. (Desmond Ramirez PA-C) Past Medical/Surgical History Problem List: Symptomatic paroxysmal atrial fibrillation first diagnosed in 2013. Successful direct current cardioversion in January 2016 and May 2016 Successful direct current cardioversion on 03/17/2017 while on sotalol Unsuccessful direct current cardioversion 2 in September 2017 Initiation of amiodarone in September 2017 Successful direct current cardioversion on November 11, 2017. Systolic heart failure, moderate reduction in left ventricular systolic function (EF 35%) by March 2017 echocardiogram at [facility] Moderate to severely enlarged left atrium Moderate mitral regurgitation Branch retinal vein occlusion with macular edema of the right eye Chronic tobacco abuse, suspected COPD History of marked sinus bradycardia Hypertension Dyslipidemia Hypothyroidism General osteoarthritis Chronic diarrhea Anxiety Vitiligo Total abdominal hysterectomy Spinal stenosis, lumbar laminectomy 2 Cholecystectomy Bilateral cataract extraction D&C Sinus surgery Right knee replacement Arthroscopic left knee surgery (Desmond Ramirez PA-C) Family History Heart disease Father at 86 with an abdominal aortic aneurysm. Mother at 83 from a "blood problem," receiving some 110 units of packed red blood cells per patient report. 3 sisters, one with kidney cancer. 2 sisters with thyroid disorder, one status post thyroidectomy. Paternal grandfather with a CVA. Maternal grandmother with a PE. (Desmond Ramirez PA-C) Heart disease (Martin Cat M.D.) Social History Smoker, currently smoking three quarters of a pack of cigarettes per day. She started smoking at age 28. No alcohol. Rare marijuana. Retired at the age of 58 after trying "every job in the book." . is a disabled [place] grown son. Smoking Status: Current Every Day Smoker Smokeless Tobacco Use: No Drug Use: marijuana Marital Status: Housing Status: lives with family Occupation: retired (Desmond Ramirez PA-C) Review Of Systems General: No fevers. No chills. No night sweats. HEENT: No headache. No head trauma. See above. Cardiovascular: See above. No near syncope or true syncope. Pulmonary: Shortness of breath. Wheezing. Dyspnea on exertion. No hemoptysis. Gastrointestinal: Chronic diarrhea. No nausea. No vomiting. No melena or hematochezia. Skin: Vitiligo. Musculoskeletal: Chronic back pain. Bilateral knee pain. Weak legs. Neurological: See above. No history of seizure. Complete review of system is otherwise as stated above, negative, noncontributory. (Desmond Ramirez PA-C) Allergies Coded Allergies: NSAIDs (Verified Allergy, Unknown, STOMACH UPSET, 12/02/17) Medications Reported Home Medications Medications Dose Route/Sig Max Daily Dose Days Date Category Dose Instructions Coumadin (Warfarin Sodium) 5 Mg Tab 2.5 Mg PO WK 12/02/17 Reported TAKES AT HS ON THURSDAYS ONLY. Norvasc (Amlodipine Besylate) 5 Mg Tab 5 Mg PO QAM 12/02/17 Reported Cordarone (Amiodarone Hcl) 200 Mg Tab 200 Mg PO DAILY 12/02/17 Reported Hydrochlorothiazide 12.5 Mg Tab 12.5 Mg PO QAM 90 12/02/17 Reported Valium (Diazepam) 5 Mg Tab 5 Mg PO HS PRN 11/11/17 Reported Levothyroxine Sodium 150 Mcg Tab 1 Tab PO DAILY 30 10/14/17 Reported Ventolin Hfa (Albuterol) 200 Puffs/78097 Mcg Aers 1-2 Puffs INH Q6H PRN 10/14/17 Reported Vicodin Es (7.5MG/300MG) (Hydrocodon/Acetaminophen 7.5MG/300MG) 1 Tab Tab 1 Tab PO Q6H PRN 02/01/17 Reported PT STATES "TAKE 4 TABS EVERY DAY". Cozaar (Losartan Potassium) 50 Mg Tab 1 Tab PO DAILY 30 02/01/17 Reported Jantoven (Warfarin Sodium) 5 Mg Tab 5 Mg PO 6XWK 01/12/17 Reported TAKES AT HS, EVERY DAY EXCEPT THURSDAYS. Aspirin Ec (Aspirin) 81 Mg Tab 81 Mg PO QAM 01/29/16 Reported Paxil (Paroxetine HCl) 40 Mg Tab 40 Mg PO QAM 01/29/16 Reported Pravachol (Pravastatin Sodium) 20 Mg Tab 20 Mg PO HS 01/29/16 Reported (Desmond Ramirez PA-C) Physical Exam Vital Signs (Last 8hrs): Last 8 Hrs Date Time Temp Pulse Resp B/P (MAP) Pulse Ox O2 Delivery O2 Flow Rate FiO2 12/03/17 08:00 Room Air 12/03/17 07:10 36.5 81 20 128/91 (103) 95 Room Air 12/03/17 04:00 Room Air 12/03/17 03:35 37.0 83 18 146/80 (102) 93 General: Alert and Oriented x3. NAD. Elevated BMI HEENT: Normocephalic Atraumatic. PER, EOMI, conjunctiva and sclera clear Neck: Supple. No carotid bruits. No overt JVD. Respiratory: Diminished. Decreased. Faint expiratory wheeze. No rales. No rhonchi. Cardiovascular: Irregularly irregular around 110 bpm. I could not appreciate a murmur. Abdomen: Normal bowel sounds, soft nontender. no abdominal bruits. Extremities: No edema, no clubbing or cyanosis. distal pulses 2/4 bilaterally. Neuro: No focal deficits. Psychiatric: Normal affect. (Desmond Ramirez PA-C) Data Last 24 Hours Test 12/02/17 18:10 12/03/17 06:34 White Blood Count 9.99 K/uL 8.28 K/uL Red Blood Count 5.03 M/uL 5.00 M/uL Hemoglobin 16.1 g/dL 16.0 g/dL Hematocrit 44.6 % 44.8 % Mean Corpuscular Volume 88.7 fL 89.6 fL Mean Corpuscular Hemoglobin 32.0 pg 32.0 pg Mean Corpuscular Hemoglobin Concent 36.1 g/dl 35.7 g/dl Platelet Count 256 K/uL 209 K/uL Mean Platelet Volume 10.0 fL 9.7 fL Neutrophils (%) (Auto) 64.7 % 49.3 % Lymphocytes (%) (Auto) 26.5 % 36.1 % Monocytes (%) (Auto) 5.8 % 9.8 % Eosinophils (%) (Auto) 2.0 % 3.9 % Basophils (%) (Auto) 0.5 % 0.5 % Neutrophils # (Auto) 6.46 K/uL 4.09 K/uL Lymphocytes # (Auto) 2.65 K/uL 2.99 K/uL Monocytes # (Auto) 0.58 K/uL 0.81 K/uL Eosinophils # (Auto) 0.20 K/uL 0.32 K/uL Basophils # (Auto) 0.05 K/uL 0.04 K/uL RDW Standard Deviation 40.0 fL 40.9 fL RDW Coefficient of Variation 12.6 % 12.7 % Immature Granulocyte % (Auto) 0.5 % 0.4 % Immature Granulocyte # (Auto) 0.05 K/uL 0.03 K/uL Prothrombin Time 33.1 SECONDS 29.3 SECONDS Prothromb Time International Ratio 3.2 2.8 Activated Partial Thromboplast Time 37.5 SECONDS Partial Thromboplastin Ratio 1.4 Sodium Level 139 mmol/L 140 mmol/L Potassium Level 3.2 mmol/L 3.8 mmol/L Chloride Level 105 mmol/L 106 mmol/L Carbon Dioxide Level 26 mmol/L 30 mmol/L Anion Gap 8.0 mmol/L 4.0 mmol/L Blood Urea Nitrogen 21 mg/dl 16 mg/dl Creatinine 1.21 mg/dl 0.87 mg/dl Est Creatinine Clear Calc Drug Dose 57.0 ml/min 79.1 ml/min Estimated GFR () 53.6 79.9 Estimated GFR (Non- 46.3 68.9 BUN/Creatinine Ratio 17.4 18.8 Random Glucose 209 mg/dl 150 mg/dl Estimated Average Glucose 151 mg/dl Hemoglobin A1c 6.9 % Calcium Level 8.9 mg/dl 8.9 mg/dl Phosphorus Level 3.2 mg/dl Magnesium Level 1.3 mg/dl 1.8 mg/dl Total Bilirubin 1.1 mg/dl Direct Bilirubin 0.3 mg/dl Aspartate Amino Transf (AST/SGOT) 40 U/L Alanine Aminotransferase (ALT/SGPT) 40 U/L Alkaline Phosphatase 79 U/L Troponin I < 0.015 ng/ml < 0.015 ng/ml Total Protein 7.3 gm/dl Albumin 4.0 gm/dl Thyroid Stimulating Hormone (TSH) 2.830 uIu/ml Admission chest x-ray with cardiomegaly, no acute cardiopulmonary abnormality. EKG's and telemetry are as described above (Desmond Ramirez PA-C) Assessment & Plan Recurrent, symptomatic paroxysmal atrial fibrillation with a rapid ventricular response on amiodarone, status post November 11, 2017 cardioversion Prolonged QTc interval CHADS2 Score: 4/6. Chronic Coumadin anticoagulation with documented therapeutic INRs for at least the last 4 weeks. Systolic heart failure, moderate reduction in left ventricular systolic function (EF 35%) by March 2017 echocardiogram at [facility] Moderate to severely enlarged left atrium Moderate mitral regurgitation Branch retinal vein occlusion with macular edema of the right eye Chronic tobacco abuse, suspected COPD Hypertension Dyslipidemia Hypothyroidism RECOMMENDATIONS/PLAN: Discontinue amiodarone Start Toprol-XL 50 mg twice per day. Resume losartan potassium at 50 mg per day Continue chronic Coumadin anticoagulation with an INR goal of 2.0-3.0. Hold amlodipine given the fluid retention and to allow for the above. Resting echocardiography (Desmond Ramirez PA-C) Patient was seen and personally examined. Long history of paroxysmal atrial fibrillation now with apparent failed attempts at rhythm control. Discussed in detail the patient ultimate goals being rate control and chronic anticoagulation. She is agreeable to plan would recommend maintaining telemetry at least an additional 24 hours as medications are changed Martin Cat MD (Martin Cat M.D.)
[2017-12-03] MEDS ORDERED: METOPROLOL SUCC 50MG EXT REL TAB PO ONE (11:15)
--- NOTE | 2017-12-03 16:25 | ECHOCARDIOGRAM REPORT ---
*NOTICE TO RECEIVING CONSTITUTION PARTY AGENCY This information is strictly Confidential and protected under [place] law. [place] law prohibits you from making any further disclosure of this information unless further disclosure is expressly permitted by the written consent of the person to whom it pertains or is authorized by law. A general authorization for the release of medical or other information is not sufficient for this purpose. Hospital accepts no responsibility if the information is made available to any other person, INCLUDING THE PATIENT. Interpretation Summary * Name: LINDY CARRION Study Date: 12/03/2017 08:28 AM BP: 146/80 mmHg * Patient Location: C.2T\S\S242\S\2 HR: 83 * : 1950 (M/d/yyyy) Gender: Female Height: 68 in * Age: 67 yrs Ethnicity: [place] Weight: 228 lb * Ordering Physician: Iftikhar Quintero * Referring Physician: Michelet Alves * Performed By: Jesús Prather RCS * * Reason For Study: A-FIB * BSA: 2.2 m2 * -- Conclusions -- * The left ventricle is normal in size. * There is moderate concentric left ventricular hypertrophy. * There is mild global hypokinesis of the left ventricle. * Left ventricular systolic function is normal. * Ejection Fraction = 50-55%. * Aortic valve sclerosis mild, without significant aortic valvular stenosis. * Borderline left atrial enlargement. Procedure Details * A complete two-dimensional transthoracic echocardiogram was performed (2D, M-mode, Doppler and color flow Doppler). * A contrast injection of Definity was performed to improve assessment of LV function. * A contrast injection of Definity was performed to improve assessment for apical thrombus. * Contrast was injected into an intravenous site in the right arm. * One vial of Definity ultrasound contrast was diluted in normal saline to a total volume of 10 ml. A total of '1' ml of solution was administered during imaging. * Lot # [id number] of Definity utilized for procedure. * Expiration date . * The attending nurse who injected the contrast agent was Bernie Lopez RN. Left Ventricle * The left ventricle is normal in size. * There is moderate concentric left ventricular hypertrophy. * Left ventricular systolic function is normal. * Ejection Fraction = 50-55%. * There is mild global hypokinesis of the left ventricle. Right Ventricle * The right ventricle is normal in size and function. Atria * Borderline left atrial enlargement. * Right atrial size is normal. * No ASD detected; PFO is not assessed. Mitral Valve * There is mild mitral annular calcification. * There is no mitral valve stenosis. * There is trace mitral regurgitation. Tricuspid Valve * The tricuspid valve anatomy is normal. * There is no tricuspid stenosis. * There is trace tricuspid regurgitation. Aortic Valve * The aortic valve is trileaflet. * Aortic valve sclerosis mild, without significant aortic valvular stenosis. * No hemodynamically significant valvular aortic stenosis. * No aortic regurgitation is present. Pulmonic Valve * The pulmonic valve is not well visualized. Great Vessels * The aortic root is normal size. Pericardium/Pleural * There is no pericardial effusion. Great Vessels * Normal inferior vena cava diameter and respiratory variation suggests normal central venous pressure. MMode 2D Measurements and Calculations IVSd 1.1 cm IVSs 1.4 cm LVIDd 5.5 cm LVIDs 3.7 cm LVPWd 1.1 cm LVPWs 1.7 cm IVS/LVPW 1.0 FS 32.1 % EDV(Teich) 148.6 ml ESV(Teich) 60.0 ml EF(Teich) 59.6 % EDV(cubed) 168.0 ml ESV(cubed) 52.7 ml EF(cubed) 68.7 % % IVS thick 26.3 % % LVPW thick 55.3 % LV mass(C)d 236.9 grams LV mass(C)dI 109.6 grams/m\S\2 LV mass(C)s 216.3 grams LV mass(C)sI 100.1 grams/m\S\2 SV(Teich) 88.6 ml SI(Teich) 41.0 ml/m\S\2 SV(cubed) 115.4 ml SI(cubed) 53.4 ml/m\S\2 Ao root diam 3.6 cm Ao root area 10.1 cm\S\2 ACS 1.8 cm LA dimension 4.1 cm asc Aorta Diam 3.5 cm LA/Ao 1.2 EDV(MOD-sp4) 113.1 ml ESV(MOD-sp4) 59.6 ml EF(MOD-sp4) 47.3 % EDV(MOD-sp2) 126.0 ml ESV(MOD-sp2) 41.2 ml EF(MOD-sp2) 67.3 % SV(MOD-sp4) 53.5 ml SI(MOD-sp4) 24.7 ml/m\S\2 SV(MOD-sp2) 84.8 ml SI(MOD-sp2) 39.2 ml/m\S\2 Doppler Measurements and Calculations Ao V2 max 95.6 cm/sec Ao max PG 3.7 mmHg Ao max PG (full) -0.57 mmHg LV V1 max PG 4.3 mmHg LV V1 max 102.7 cm/sec PA V2 max 68.8 cm/sec PA max PG 1.9 mmHg
--- NOTE | 2017-12-03 17:32 | Progress Note ---
Internal Med Progress Note Date of Service: December 03, 2017. Provider Documentation: SUBJECTIVE: No acute distress. Patient denies chest pain or shortness of breath OBJECTIVE: General- no distress Eyes- EOMI Neck- no JVD Lungs- fair air entry, no use of accessory muscles, on room air Heart- heart somewhat irregular, high 90s Abdomen- obesity, soft, nontender, + bowel sounds Extremities - no calf tenderness Neuro- awake and alert ASSESSMENT & PLAN: Cardiac History Recurrent, symptomatic paroxysmal atrial fibrillation with a rapid ventricular response on amiodarone, status post November 11, 2017 cardioversion Prolonged QTc interval CHADS2 Score: 4/6. Chronic Coumadin anticoagulation with documented therapeutic INRs for at least the last 4 weeks. Systolic heart failure, moderate reduction in left ventricular systolic function (EF 35%) by March 2017 echocardiogram at [facility] Moderate to severely enlarged left atrium Moderate mitral regurgitation Echocardiogram 12/03/17 The left ventricle is normal in size. There is moderate concentric left ventricular hypertrophy. There is mild global hypokinesis of the left ventricle. Left ventricular systolic function is normal. Ejection Fraction = 50-55%. Aortic valve sclerosis mild, without significant aortic valvular stenosis. Borderline left atrial enlargement. Currently patient does not appear to be in acute CHF exacerbation Cardiology recommendations for Atrial Fibrillation and Hypertension Discontinued amiodarone Start Toprol-XL 50 mg twice per day. Resume losartan potassium at 50 mg per day Continue chronic Coumadin anticoagulation with an INR goal of 2.0-3.0. Hold amlodipine for now to avoid pedal edema Maintain telemetry Hypomagnesemia: replete with IV magnesium Acute kidney injury resolved Hypothyroidism: continue Levothyroxine Augmentin for complicated sinusitis. no acute diarrhea, Stool C. difficile test not needed anxiolytic as needed Smoking History: nicotine patch HbA1c 6.9: patient should follow up with primary care doctor as outpatient on dietary and lifestyle changes vs oral Diabetes mellitus medications DVT prophylaxis, on Coumadin with INR as 2.8 Full code. Vital Signs: Date Time Temp Pulse Resp B/P (MAP) Pulse Ox O2 Delivery O2 Flow Rate FiO2 12/03/17 16:00 95 Room Air 12/03/17 15:08 36.4 97 20 159/89 (112) 95 Room Air 12/03/17 12:00 Room Air 12/03/17 11:01 37.0 76 20 132/75 (94) 95 Room Air 12/03/17 08:00 Room Air 12/03/17 07:10 36.5 81 20 128/91 (103) 95 Room Air 12/03/17 04:00 Room Air 12/03/17 03:35 37.0 83 18 146/80 (102) 93 12/03/17 00:01 Room Air 12/02/17 23:10 36.7 97 18 150/94 93 Room Air 12/02/17 22:40 90 20 133/89 93 12/02/17 22:09 94 12/02/17 21:30 98 22 142/90 94 Room Air 12/02/17 20:01 90 24 119/89 94 Room Air 12/02/17 19:39 108 16 114/56 94 Room Air 12/02/17 18:17 125 120/87 12/02/17 18:03 127 12/02/17 18:02 Nasal Cannula 2.0 12/02/17 18:01 92 Room Air 12/02/17 17:49 36.4 89 20 132/85 94 Room Air Lab Results: Results Past 24 Hours Test 12/02/17 18:10 12/03/17 06:34 Range/Units White Blood Count 9.99 8.28 4.8-10.8 K/uL Red Blood Count 5.03 5.00 4.2-5.4 M/uL Hemoglobin 16.1 16.0 12.0-16.0 g/dL Hematocrit 44.6 44.8 37-47 % Mean Corpuscular Volume 88.7 89.6 80-100 fL Mean Corpuscular Hemoglobin 32.0 32.0 25-34 pg Mean Corpuscular Hemoglobin Concent 36.1 35.7 32-36 g/dl Platelet Count 256 209 130-400 K/uL Mean Platelet Volume 10.0 9.7 7.4-10.4 fL Neutrophils (%) (Auto) 64.7 49.3 % Lymphocytes (%) (Auto) 26.5 36.1 % Monocytes (%) (Auto) 5.8 9.8 % Eosinophils (%) (Auto) 2.0 3.9 % Basophils (%) (Auto) 0.5 0.5 % Neutrophils # (Auto) 6.46 4.09 1.4-6.5 K/uL Lymphocytes # (Auto) 2.65 2.99 1.2-3.4 K/uL Monocytes # (Auto) 0.58 0.81 0.11-0.59 K/uL Eosinophils # (Auto) 0.20 0.32 0-0.5 K/uL Basophils # (Auto) 0.05 0.04 0-0.2 K/uL RDW Standard Deviation 40.0 40.9 36.4-46.3 fL RDW Coefficient of Variation 12.6 12.7 11.5-14.5 % Immature Granulocyte % (Auto) 0.5 0.4 % Immature Granulocyte # (Auto) 0.05 0.03 0.00-0.02 K/uL Prothrombin Time 33.1 29.3 9.0-12.0 SECONDS Prothromb Time International Ratio 3.2 2.8 0.9-1.1 Activated Partial Thromboplast Time 37.5 21.0-31.0 SECONDS Partial Thromboplastin Ratio 1.4 Sodium Level 139 140 136-145 mmol/L Potassium Level 3.2 3.8 3.5-5.1 mmol/L Chloride Level 105 106 98-107 mmol/L Carbon Dioxide Level 26 30 21-32 mmol/L Anion Gap 8.0 4.0 3-11 mmol/L Blood Urea Nitrogen 21 16 7-18 mg/dl Creatinine 1.21 0.87 0.60-1.20 mg/dl Est Creatinine Clear Calc Drug Dose 57.0 79.1 ml/min Estimated GFR () 53.6 79.9 Estimated GFR (Non- 46.3 68.9 BUN/Creatinine Ratio 17.4 18.8 10-20 Random Glucose 209 150 70-99 mg/dl Estimated Average Glucose 151 mg/dl Hemoglobin A1c 6.9 4.5-5.6 % Calcium Level 8.9 8.9 8.5-10.1 mg/dl Phosphorus Level 3.2 2.5-4.9 mg/dl Magnesium Level 1.3 1.8 1.8-2.4 mg/dl Total Bilirubin 1.1 0.2-1 mg/dl Direct Bilirubin 0.3 0-0.2 mg/dl Aspartate Amino Transf (AST/SGOT) 40 15-37 U/L Alanine Aminotransferase (ALT/SGPT) 40 12-78 U/L Alkaline Phosphatase 79 45-117 U/L Troponin I < 0.015 < 0.015 0-0.045 ng/ml Total Protein 7.3 6.4-8.2 gm/dl Albumin 4.0 3.4-5.0 gm/dl Thyroid Stimulating Hormone (TSH) 2.830 0.300-4.500 uIu/ml
[2017-12-03] MEDS ORDERED: MAGNESIUM SULFATE 1GM / D5W 100 ML IV STA (17:34)
[2017-12-03] MEDS ORDERED: LOSARTAN POTASSIUM 50 MG TAB PO SCH (21:00)
[2017-12-03] MEDS ORDERED: PRAVASTATIN SOD 20 MG TAB PO SCH (21:00)
[2017-12-03] MEDS: METOPROLOL SUCC 50MG EXT REL TAB PO SCH (21:19)
[2017-12-04 03:52] VITALS: BP 152/99; PULSE 73; TEMP 36.7; O2SAT 93
[2017-12-04] MEDS: LEVOTHYROXINE 150 MCG TAB PO SCH (06:04)
[2017-12-04 06:56] VITALS: BP 128/78; PULSE 80; TEMP 36.7; O2SAT 94
[2017-12-04 08:22] LABS: ALBUMIN 3.5 gm/dl (3.4-5.0); CALCIUM 8.7 mg/dl (8.5-10.1); CREATININE 0.82 mg/dl (0.60-1.20); TOTAL PROTEIN 7.3 gm/dl (6.4-8.2)
[2017-12-04] MEDS: PAROXETINE 20 MG TAB PO SCH (08:27)
[2017-12-04] MEDS: ASPIRIN 81 MG ECTAB PO SCH (08:27)
[2017-12-04] MEDS: METOPROLOL SUCC 50MG EXT REL TAB PO SCH ×2 (08:27→18:19)
[2017-12-04] MEDS: NICOTINE 14 MG/24 HR TDSY TD SCH (08:27)
[2017-12-04] MEDS: AMOXICILLIN/CLAVULANATE TAB 875 MG TAB PO SCH ×2 (08:27→18:18)
[2017-12-04 09:05] LABS: POTASSIUM 4.2 mmol/L (3.5-5.1)
[2017-12-04 11:06] VITALS: BP 160/85; PULSE 58; TEMP 36.8; O2SAT 95
--- NOTE | 2017-12-04 12:36 | PROGRESS NOTE ---
DATE: 12/04/2017 The patient seen and examined. Chart, medications, telemetry reviewed. SUBJECTIVE: The patient notes "sleepy" this morning, but otherwise feels well. Notes no chest pain or discomfort. Notes no dizziness or lightheadedness. Telemetry reveals generally controlled atrial fibrillation with intermittent ventricular pacing. OBJECTIVE: VITAL SIGNS: Heart rate 60, blood pressure is 160/85. NECK: Thick. There is no distinct jugular venous distention. LUNGS: Clear. CARDIOVASCULAR: Irregularly irregular. There is no S3 gallop. ABDOMEN: Soft, nontender. EXTREMITIES: Without cyanosis or clubbing. There is no peripheral edema. LABORATORY DATA: Echocardiogram performed yesterday demonstrates low normal LV systolic function with moderate left ventricular hypertrophy, EF 50-55%, aortic sclerosis without stenosis. This represents improvement in overall LV systolic function. RECOMMENDATIONS: Continue current dosing of metoprolol and discontinuation of amiodarone, would increase losartan to 50 mg twice per day given relative hypertension. The patient dissipates follow up with Dr. Camp later this week. If ambulatory in the hallway, stable for discharge to home. Ultimate plans, rate control and anticoagulation as already ordered.
[2017-12-04] MEDS ORDERED: CZR50 PO (13:00)
[2017-12-04] MEDS ORDERED: TPRSR50 PO (13:00)
[2017-12-04] MEDS ORDERED: AMOX1TAB43 PO (13:09)
--- NOTE | 2017-12-04 13:25 | Progress Note ---
Internal Med Progress Note Date of Service: December 04, 2017. Provider Documentation: SUBJECTIVE: Patient's heart rate is much improved today. Patient reports that stool today is more well formed OBJECTIVE: General- no distress Eyes- EOMI Neck- no JVD Lungs- fair air entry, no use of accessory muscles, on room air Heart- heart rate irregular, rate controlled Abdomen- obesity, soft, nontender, + bowel sounds Extremities - no calf tenderness Neuro- awake and alert ASSESSMENT & PLAN: Hospital Course and Discharge Plans This is a 67 year old patient who presented with atrial fibrillation and rapid ventricular response Cardiac History Recurrent, symptomatic paroxysmal atrial fibrillation with a rapid ventricular response on amiodarone, status post November 11, 2017 cardioversion Prolonged QTc interval CHADS2 Score: 4/6. Chronic Coumadin anticoagulation with documented therapeutic INRs for at least the last 4 weeks. Systolic heart failure, moderate reduction in left ventricular systolic function (EF 35%) by March 2017 echocardiogram at [facility] Moderate to severely enlarged left atrium Moderate mitral regurgitation Echocardiogram 12/03/17 The left ventricle is normal in size. There is moderate concentric left ventricular hypertrophy. There is mild global hypokinesis of the left ventricle. Left ventricular systolic function is normal. Ejection Fraction = 50-55%. Aortic valve sclerosis mild, without significant aortic valvular stenosis. Borderline left atrial enlargement. Currently patient is not in acute CHF exacerbation Patient's heart rate is controlled after changes in medications made with inpatient cardiology service for Atrial Fibrillation and Hypertension Cardiology service made changes to patient's medication list: discontinued amiodarone, instead of amlodipine or HCTZ patient's blood pressure medication changed to losartan potassium at 50 mg BID, and newly started on Metoprolol Succinate 50 mg twice per day. Continue chronic Coumadin anticoagulation with an INR goal of 2.0 to 3.0. Hypomagnesemia: Serum Magnesium 1.8 on 12/03/17 and patient received IV magnesium but again low levels as 1.6 on 12/04/17, likely magnesium is lost from recent diarrhea, patient received 2 more grams of IV magnesium supplements with discharge serum magnesium of 2.2 Acute kidney injury resolved Hypothyroidism: continue Levothyroxine Augmentin for complicated sinusitis. Continue Augmentin as outpatient Smoking History: nicotine patch HbA1c 6.9: patient should follow up with primary care doctor as outpatient on dietary and lifestyle changes vs oral Diabetes mellitus medications Discharge instructions Patient is discharged on new cardiovascular medication list and should follow up with cardiology and coumadin clinic as listed below. Also to be discharged with Augmentin for possible sinuitis. Also to be discharged with prescription for Nicotine patches to quit smoking. 12/06/2017 6:15 PM [facility], [facility] 12/07/2017 2:30 PM Mariann Camp, DO Cardiology, [facility] 01/13/2018 3:00 PM Matthew Barahona, DO Internal Medicine [facility] Vital Signs: Date Time Temp Pulse Resp B/P (MAP) Pulse Ox O2 Delivery O2 Flow Rate FiO2 12/04/17 16:00 Room Air 12/04/17 15:30 36.8 72 17 143/74 (97) 92 Nasal Cannula 12/04/17 13:00 Room Air 12/04/17 11:06 36.8 58 18 160/85 (110) 95 Room Air 12/04/17 08:00 Room Air 12/04/17 06:56 36.7 80 16 128/78 (95) 94 Room Air 12/04/17 04:00 Room Air 12/04/17 03:52 36.7 73 18 152/99 (116) 93 Room Air 12/04/17 00:00 Room Air 12/03/17 23:38 37.0 77 18 132/43 (72) 93 Room Air 12/03/17 20:00 Room Air 12/03/17 19:16 37.2 85 85 143/85 (104) 94 Nasal Cannula Lab Results: Results Past 24 Hours Test 12/04/17 07:21 12/04/17 08:34 12/04/17 17:03 Range/Units Sodium Level 139 136-145 mmol/L Potassium Level 4.2 3.5-5.1 mmol/L Chloride Level 106 98-107 mmol/L Carbon Dioxide Level 30 21-32 mmol/L Anion Gap 4.0 3-11 mmol/L Blood Urea Nitrogen 15 7-18 mg/dl Creatinine 0.82 0.60-1.20 mg/dl Est Creatinine Clear Calc Drug Dose 84.1 ml/min Estimated GFR () 85.8 Estimated GFR (Non- 74.0 BUN/Creatinine Ratio 18.2 10-20 Random Glucose 142 70-99 mg/dl Calcium Level 8.7 8.5-10.1 mg/dl Magnesium Level 1.6 2.2 1.8-2.4 mg/dl Total Bilirubin 1.1 0.2-1 mg/dl Aspartate Amino Transf (AST/SGOT) 30 15-37 U/L Alanine Aminotransferase (ALT/SGPT) 35 12-78 U/L Alkaline Phosphatase 75 45-117 U/L Total Protein 7.3 6.4-8.2 gm/dl Albumin 3.5 3.4-5.0 gm/dl Globulin 3.8 2.5-4.0 gm/dl Albumin/Globulin Ratio 0.9 0.9-2 Chemistry Specimen Hemolysis Microbiology Results 12/04/17 C.difficile Toxin B Gene (PCR) - Final, Complete No C. difficile toxin B gene detected
[2017-12-04] MEDS ORDERED: NICO7DIS7 TD (13:36)
[2017-12-04] MEDS: MAGNESIUM SULFATE 1GM / D5W 100 ML IV SCH ×2 (13:39→14:37)
[2017-12-04 15:30] VITALS: BP 143/74; PULSE 72; TEMP 36.8; O2SAT 92
--- NOTE | 2017-12-04 18:03 | Discharge Summary ---
Discharge Summary Date of Service December 04, 2017. Discharge Summary Admission Date: December 02, 2017 at 22:19 Discharge Date: December 04, 2017 Discharge Disposition: Home Principal Diagnosis: atrial fibrillation with rapid ventricular response, Hypomagnesemia Secondary Diagnoses/Problems: hypertension sinusitis Medication Reconciliation New Medications: Nicotine (Nicoderm Cq 7 Mg Patch) 7 Mg/24 Hr Dis 7 MG TD DAILY for 30 Days, #30 PATCH Amoxicillin & Pot Clavulanate (Amoxicillin/Clavulanate P) 1 Tab Tab 875 MG PO BIDM for 4 Days, #8 TAB Losartan Potassium (Losartan Potassium) 50 Mg Tab 50 MG PO BID for 30 Days, #60 TAB Metoprolol Succinate (Metoprolol Succinate ER) 50 Mg Tabcr 50 MG PO BID for 30 Days, #60 TAB Continued Medications: Albuterol Hfa (Ventolin Hfa) 200 Puffs/21239 Mcg Aers 1-2 PUFFS INH Q6H PRN for Shortness of Breath, #1 INHALER Aspirin (Aspirin Ec) 81 Mg Tab 81 MG PO QAM Diazepam (Valium) 5 Mg Tab 5 MG PO HS PRN for Sleep, TAB Levothyroxine Sodium (Levothyroxine Sodium) 150 Mcg Tab 1 TAB PO DAILY for 30 Days, #30 TAB 5 Refills Paroxetine (Paxil) 40 Mg Tab 40 MG PO QAM, TAB Pravastatin (Pravachol ) 20 Mg Tab 20 MG PO HS, TAB Warfarin Sod (Jantoven) 5 Mg Tab 5 MG PO 6XWK, TAB TAKES AT HS, EVERY DAY EXCEPT THURSDAYS. Warfarin Sodium (Coumadin) 5 Mg Tab 2.5 MG PO WK, TAB TAKES AT HS ON THURSDAYS ONLY. Discontinued Medications: Amiodarone Hcl (Cordarone) 200 Mg Tab 200 MG PO DAILY, TAB Amlodipine (Norvasc) 5 Mg Tab 5 MG PO QAM, TAB Hydrochlorothiazide (Hydrochlorothiazide) 12.5 Mg Tab 12.5 MG PO QAM for 90 Days, #90 TAB 3 Refills Hydrocodon/Acetaminophen 7.5MG/300MG (Vicodin Es (7.5MG/300MG)) 1 Tab Tab 1 TAB PO Q6H PRN for Pain, TAB PT STATES "TAKE 4 TABS EVERY DAY". Losartan Potassium (Cozaar) 50 Mg Tab 1 TAB PO DAILY for 30 Days, #30 TAB 5 Refills Admission Information HPI (per Admitting provider): CHIEF COMPLAINT: Palpitations. HISTORY OF PRESENT ILLNESS: History obtained from patient and records. Medical history is significant for chronic systolic heart failure EF 35-40 (TTE 2017), hypertension, AFib, status post cardioversion on Coumadin, ongoing tobacco abuse, hypothyroidism. In October 2017, patient underwent elective cardioversion for persistent AFib. Patient was well until a few days ago when she felt like she was in AFib again, generalized weakness, nasal sinus congestion, initially clear later productive of yellow drainage. No unusual leg swelling, no chest pain. Appetite not too good. Some stress at home caring for her with medical issues. Patient is compliant with home meds. Patient went to the Emergency Room. Noted to be in rapid AFib, heart rate in the 120s. Patient given metoprolol in the ER and Furosemide. Heart rate currently in the 90s. Medical history as above. A 2D echo from 03/18/2017 showed EF of 35-40%, LVH, moderate MR. SURGERIES: She has had cataract surgery, cholecystectomy, back surgery, hysterectomy, gynecologic procedures. HOME MEDICATIONS: Coumadin, Vicodin, Cozaar, Paxil, Pravachol, Ventolin, Cordarone, aspirin, Norvasc ALLERGIES: NSAIDS. FAMILY HISTORY: There is a family of diabetes, stroke, basal cell cancer. PERSONAL AND SOCIAL HISTORY: One-half pack daily. No chronic intake of alcoholic beverages. Retired from factory work. REVIEW OF SYSTEMS: As per HPI. All 10 systems reviewed. All other ROS negative Physical Exam (per Admitting): PHYSICAL EXAMINATION: VITAL SIGNS: Blood pressure was noted to be 120/80, pulse rate 120 later 98, RR 24, temperature 36.7, sats 93 on room air. GENERAL: Noted to be anxious, obese, respiratory distress. SKIN: Normal color, warm. HEENT: [place] palpebral conjunctivae. No ptosis. Dry mucosa. NECK: Short, supple. CHEST: Decreased breath sounds. No tenderness. HEART: Irregular, systolic murmur. ABDOMEN: Some distention and nontender. EXTREMITIES: No edema. No tenderness. No gross deformities. NEUROLOGIC: Coherent. No gross focality. Hospital Course Hospital Course and Discharge Plans This is a 67 year old patient who presented with atrial fibrillation and rapid ventricular response Cardiac History Recurrent, symptomatic paroxysmal atrial fibrillation with a rapid ventricular response on amiodarone, status post November 11, 2017 cardioversion Prolonged QTc interval CHADS2 Score: 4/6. Chronic Coumadin anticoagulation with documented therapeutic INRs for at least the last 4 weeks. Systolic heart failure, moderate reduction in left ventricular systolic function (EF 35%) by March 2017 echocardiogram at [facility] Moderate to severely enlarged left atrium Moderate mitral regurgitation Echocardiogram 12/03/17 The left ventricle is normal in size. There is moderate concentric left ventricular hypertrophy. There is mild global hypokinesis of the left ventricle. Left ventricular systolic function is normal. Ejection Fraction = 50-55%. Aortic valve sclerosis mild, without significant aortic valvular stenosis. Borderline left atrial enlargement. Currently patient is not in acute CHF exacerbation Patient's heart rate is controlled after changes in medications made with inpatient cardiology service for Atrial Fibrillation and Hypertension Cardiology service made changes to patient's medication list: discontinued amiodarone, instead of amlodipine or HCTZ patient's blood pressure medication changed to losartan potassium at 50 mg BID, and newly started on Metoprolol Succinate 50 mg twice per day. Continue chronic Coumadin anticoagulation with an INR goal of 2.0 to 3.0. Hypomagnesemia: Serum Magnesium 1.8 on 12/03/17 and patient received IV magnesium but again low levels as 1.6 on 12/04/17, likely magnesium is lost from recent diarrhea, patient received 2 more grams of IV magnesium supplements with discharge serum magnesium of 2.2 Acute kidney injury resolved Hypothyroidism: continue Levothyroxine Augmentin for complicated sinusitis. Continue Augmentin as outpatient Smoking History: nicotine patch HbA1c 6.9: patient should follow up with primary care doctor as outpatient on dietary and lifestyle changes vs oral Diabetes mellitus medications Discharge instructions Patient is discharged on new cardiovascular medication list and should follow up with cardiology and coumadin clinic as listed below. Also to be discharged with Augmentin for possible sinuitis. Also to be discharged with prescription for Nicotine patches to quit smoking. 12/06/2017 6:15 PM [facility], [facility] 12/07/2017 2:30 PM Mariann Camp DO Cardiology, [facility] 01/13/2018 3:00 PM Matthew Barahona DO Internal Medicine [facility] Total time spent on discharge = 40 minutes This includes examination of the patient, discharge planning, medication reconciliation, and communication with other providers. Discharge Instructions see above
--- NOTE | 2017-12-04 18:03 | Discharge Instructions ---
Discharge Instructions Date of Service December 04, 2017. Admission Reason for Admission: Rapid Atrial Fibrillation Discharge Discharge Diagnosis / Problem: atrial fibrillation with rapid ventricular response, Hypomagnesemia Discharge Goals Goal(s): Improve disease control Activity Recommendations Activity Limitations: per Instructions/Follow-up section Shower/Bathe: no limitations . Instructions / Follow-Up Instructions / Follow-Up Hospital Course and Discharge Plans This is a 67 year old patient who presented with atrial fibrillation and rapid ventricular response Cardiac History Recurrent, symptomatic paroxysmal atrial fibrillation with a rapid ventricular response on amiodarone, status post November 11, 2017 cardioversion Prolonged QTc interval CHADS2 Score: 4/6. Chronic Coumadin anticoagulation with documented therapeutic INRs for at least the last 4 weeks. Systolic heart failure, moderate reduction in left ventricular systolic function (EF 35%) by March 2017 echocardiogram at [facility] Moderate to severely enlarged left atrium Moderate mitral regurgitation Echocardiogram 12/03/17 The left ventricle is normal in size. There is moderate concentric left ventricular hypertrophy. There is mild global hypokinesis of the left ventricle. Left ventricular systolic function is normal. Ejection Fraction = 50-55%. Aortic valve sclerosis mild, without significant aortic valvular stenosis. Borderline left atrial enlargement. Currently patient is not in acute CHF exacerbation Patient's heart rate is controlled after changes in medications made with inpatient cardiology service for Atrial Fibrillation and Hypertension Cardiology service made changes to patient's medication list: discontinued amiodarone, instead of amlodipine or HCTZ patient's blood pressure medication changed to losartan potassium at 50 mg BID, and newly started on Metoprolol Succinate 50 mg twice per day. Continue chronic Coumadin anticoagulation with an INR goal of 2.0 to 3.0. Hypomagnesemia: Serum Magnesium 1.8 on 12/03/17 and patient received IV magnesium but again low levels as 1.6 on 12/04/17, likely magnesium is lost from recent diarrhea, patient received 2 more grams of IV magnesium supplements with discharge serum magnesium of 2.2 Acute kidney injury resolved Hypothyroidism: continue Levothyroxine Augmentin for complicated sinusitis. Continue Augmentin as outpatient Smoking History: nicotine patch HbA1c 6.9: patient should follow up with primary care doctor as outpatient on dietary and lifestyle changes vs oral Diabetes mellitus medications Discharge instructions Patient is discharged on new cardiovascular medication list and should follow up with cardiology and coumadin clinic as listed below. Also to be discharged with Augmentin for possible sinuitis. Also to be discharged with prescription for Nicotine patches to quit smoking. 12/06/2017 6:15 PM [facility], [facility] 12/07/2017 2:30 PM Mariann Camp, DO Cardiology, [facility] 01/13/2018 3:00 PM Matthew Barahona DO Internal Medicine [facility] Current Hospital Diet Patient's current hospital diet: AHA Diet (Heart Healthy) Discharge Diet Recommended Diet: AHA Diet (Heart Healthy) Pending Studies Studies pending at discharge: no Laboratory Results 12/03/17 06:34 Red Blood Count 5.00, Mean Corpuscular Volume 89.6, Mean Corpuscular Hemoglobin 32.0, Mean Corpuscular Hemoglobin Concent 35.7, Mean Platelet Volume 9.7, Neutrophils (%) (Auto) 49.3, Lymphocytes (%) (Auto) 36.1, Monocytes (%) (Auto) 9.8, Eosinophils (%) (Auto) 3.9, Basophils (%) (Auto) 0.5, Neutrophils # (Auto) 4.09, Lymphocytes # (Auto) 2.99, Monocytes # (Auto) 0.81, Eosinophils # (Auto) 0.32, Basophils # (Auto) 0.04 12/04/17 07:21 12/04/17 08:34 Test 12/02/17 18:10 12/03/17 06:34 12/04/17 07:21 12/04/17 08:34 Activated Partial Thromboplast Time 37.5 SECONDS (21.0-31.0) Partial Thromboplastin Ratio 1.4 Estimated Average Glucose 151 mg/dl Hemoglobin A1c 6.9 % (4.5-5.6) Phosphorus Level 3.2 mg/dl (2.5-4.9) Direct Bilirubin 0.3 mg/dl (0-0.2) Thyroid Stimulating Hormone (TSH) 2.830 uIu/ml (0.300-4.500) White Blood Count 8.28 K/uL (4.8-10.8) Red Blood Count 5.00 M/uL (4.2-5.4) Hemoglobin 16.0 g/dL (12.0-16.0) Hematocrit 44.8 % (37-47) Mean Corpuscular Volume 89.6 fL (80-100) Mean Corpuscular Hemoglobin 32.0 pg (25-34) Mean Corpuscular Hemoglobin Concent 35.7 g/dl (32-36) Platelet Count 209 K/uL (130-400) Mean Platelet Volume 9.7 fL (7.4-10.4) Neutrophils (%) (Auto) 49.3 % Lymphocytes (%) (Auto) 36.1 % Monocytes (%) (Auto) 9.8 % Eosinophils (%) (Auto) 3.9 % Basophils (%) (Auto) 0.5 % Neutrophils # (Auto) 4.09 K/uL (1.4-6.5) Lymphocytes # (Auto) 2.99 K/uL (1.2-3.4) Monocytes # (Auto) 0.81 K/uL (0.11-0.59) Eosinophils # (Auto) 0.32 K/uL (0-0.5) Basophils # (Auto) 0.04 K/uL (0-0.2) RDW Standard Deviation 40.9 fL (36.4-46.3) RDW Coefficient of Variation 12.7 % (11.5-14.5) Immature Granulocyte % (Auto) 0.4 % Immature Granulocyte # (Auto) 0.03 K/uL (0.00-0.02) Prothrombin Time 29.3 SECONDS (9.0-12.0) Prothromb Time International Ratio 2.8 (0.9-1.1) Troponin I < 0.015 ng/ml (0-0.045) Anion Gap 4.0 mmol/L (3-11) Est Creatinine Clear Calc Drug Dose 84.1 ml/min Estimated GFR () 85.8 Estimated GFR (Non- 74.0 BUN/Creatinine Ratio 18.2 (10-20) Calcium Level 8.7 mg/dl (8.5-10.1) Total Bilirubin 1.1 mg/dl (0.2-1) Alanine Aminotransferase (ALT/SGPT) 35 U/L (12-78) Alkaline Phosphatase 75 U/L (45-117) Total Protein 7.3 gm/dl (6.4-8.2) Albumin 3.5 gm/dl (3.4-5.0) Globulin 3.8 gm/dl (2.5-4.0) Albumin/Globulin Ratio 0.9 (0.9-2) Aspartate Amino Transf (AST/SGOT) 30 U/L (15-37) Test 12/04/17 17:03 Magnesium Level 2.2 mg/dl (1.8-2.4) Chemistry Specimen Hemolysis Date/Time Source Procedure Growth Status 12/04/17 01:56 Stool C.difficile Toxin B Gene (PCR) - Final No C. difficile toxin B gene detected Complete Hemoglobin A1c Test 12/02/17 18:10 Range/Units Estimated Average Glucose 151 mg/dl Hemoglobin A1c 6.9 H 4.5-5.6 % Medical Emergencies . Who to Call and When: Medical Emergencies: If at any time you feel your situation is an emergency, please call 911 immediately. . Non-Emergent Contact Non-Emergency issues call your: Primary Care Provider, Transit Bus Operator Call Non-Emergent contact if: you have any medication questions . . "Provider Documentation" section prepared by Nilesh Hall. .
[2017-12-04 18:22] VITALS: BP 143/74; PULSE 72; TEMP 36.8; O2SAT 92
[2017-12-04] MEDS ORDERED: LOSARTAN POTASSIUM 50 MG TAB PO SCH (21:00)
== END 2017-12-04 19:29 | disposition home or self-care (01) | DRG 309 ==
LOC: C.EDB 17:47 → C.2T 22:19 → ENRESERV 22:26
PROVIDERS: ADMIT Hospitalist; ATTEND Hospitalist
DX: I48.0 Paroxysmal atrial fibrillation (principal); N17.9 Acute kidney failure, unspecified; I11.0 Hypertensive heart disease with heart failure; I50.22 Chronic systolic (congestive) heart failure; J32.9 Chronic sinusitis, unspecified; I34.0 Nonrheumatic mitral (valve) insufficiency; E87.6 Hypokalemia; E83.42 Hypomagnesemia; R73.9 Hyperglycemia, unspecified; E03.9 Hypothyroidism, unspecified; E78.5 Hyperlipidemia, unspecified; F17.200 Nicotine dependence, unspecified, uncomplicated; Z79.01 Long term (current) use of anticoagulants; Z79.82 Long term (current) use of aspirin; Z79.899 Other long term (current) drug therapy; Z88.6 Allergy status to analgesic agent; Z83.3 Family history of diabetes mellitus